=== PATIENT | male | born 1955 | race Caucasian/White ===

== ENCOUNTER 2016-02-25 09:49 | Outpatient (CLI) | payer OTHER | END 2016-02-25 23:00 | LOC: MRI SRH 09:49 | DX: M25.511 Pain in right shoulder (principal); M25.512 Pain in left shoulder; Z53.8 Procedure and treatment not carried out for other reasons ==

== ENCOUNTER 2016-03-01 11:45 | Outpatient (CLI) | payer OTHER ==
--- NOTE | 2016-03-01 17:04 | DIAGNOSTIC IMAGING REPORT ---
PROCEDURE: XR SHOULDER INJECTION (PRE MR) INDICATION: Shoulder pain. Prior surgery (resection distal clavicle, rotator cuff surgery - - reported by patient). TECHNIQUE: The patient was advised of the usual risks and complications including infection, bleeding and allergy. Supine RPO position. Following sterile preparation and 1% lidocaine anesthetic, fluoroscopic guidance 2.2 minutes, 296.11 mGy) was utilized to place a 22-gauge spinal needle into the ventral left glenohumeral joint. A 10.1 mL solution (2.5 mL Isovue 200, 2.5 mL 1% lidocaine, 2.5 mL 0.5% Marcaine, 2.5 mL normal saline, 0.1 mL gadolinium) was infused. Subsequently, 2 mL 40 mg/mL Kenalog was infused and the needle was withdrawn. COMPARISON: None. FINDINGS: Five AP views in neutral, internal and external rotation. Confirmation of intraarticular injection. Arthrogram is normal. Status post and resection of the left distal clavicle. The patient tolerated the procedure reasonably well and was transferred to MRI in satisfactory condition with instructions to resume routine activity the following day, and to call for any untoward symptoms (increasing pain/swelling). IMPRESSION: 1. Successful fluoroscopically guided diagnostic/therapeutic injection of the left glenohumeral joint (pre MRI). 2. Negative arthrogram of the left shoulder. 3. MR arthrography is pending.
--- NOTE | 2016-03-01 17:32 | DIAGNOSTIC IMAGING REPORT ---
PROCEDURE: MR UPPER EXT JOINT W/CONT-LT INDICATION: Left shoulder pain. Prior surgery (reportedly rotator cuff surgery and resection of the distal clavicle). TECHNIQUE: Intraarticular contrast/gadolinium injected earlier in the day. PD, FAT-SAT PD, and FAT-SAT T1 sagittal oblique images. PD, FAT-SAT PD, and FAT-SAT T1 coronal oblique images. T1, FAT-SAT T1, and gradient axial images. COMPARISON: Comparison is made to conventional arthrogram of the left shoulder earlier in the day (03/01/2016). FINDINGS: Status post resection of the distal clavicle and acromioclavicular joint. No evidence of impingement. There are mild generalized atrophic changes of the distal supraspinatus muscle and tendon, although there is no evidence of rotator cuff tear. There is mild coracoid impingement (9 mm). Supraspinatus tendon is normal. Biceps tendon is intact. There is a relatively large of the superior cartilaginous labrum which extends anteriorly and posteriorly. This is associated mild cranial displacement of the humeral head in relation to the glenoid. Metal, inferior, and superior glenohumeral ligaments are normal. IMPRESSION: 1. Status post resection of the right distal clavicle and acromioclavicular joint. No evidence of significant impingement. 2. Mild coracoid impingement. 3. Moderate atrophic changes of the distal supraspinatus muscle and tendon. No evidence of rotator cuff tear. 4. Relatively large tear of the superior labrum which extends anteriorly and posteriorly (SLAP lesion), and is associated with mild cranial displacement of the humeral head (in relation to the glenoid).
== END 2016-03-01 23:00 ==
LOC: XR SRH 11:45
PROC: BP191ZZ Fluoroscopy of Left Shoulder using Low Osmolar Contrast (ICD-10-PCS; principal; 2016-03-01)
DX: M25.512 Pain in left shoulder (principal)

== ENCOUNTER 2016-03-02 12:26 | Outpatient (CLI) | payer OTHER ==
--- NOTE | 2016-03-02 19:21 | DIAGNOSTIC IMAGING REPORT ---
PROCEDURE: XR SHOULDER INJECTION (PRE MR) INDICATION: Right shoulder pain. History of multiple prior surgeries. TECHNIQUE: The patient was advised of the usual risks and complications including infection, bleeding and allergy. Supine RPO position. Following sterile preparation and 1% lidocaine anesthetic, fluoroscopic guidance (2.6 minutes, 1125.03 mGy) was utilized to place a 22-gauge spinal needle into the ventral right glenohumeral joint. A 10.1 mL solution (2.5 mL Isovue 200, 2.5 mL 1% lidocaine, 2.5 mL 0.5% Marcaine, 2.5 mL normal saline, 0.1 mL gadolinium) was infused. Subsequently, 2 mL 40 mg/mL Kenalog was infused and the needle was withdrawn. COMPARISON: Comparison made radiographs of the right shoulder on 12/15/2015. FINDINGS: Five AP views in neutral, internal and external rotation. Confirmation of intraarticular injection. Status post resection of the right distal clavicle. Arthrogram is normal. The patient tolerated the procedure reasonably well and was transferred to MRI in satisfactory condition with instructions to resume routine activity the following day, and to call for any untoward symptoms (increasing pain/swelling). IMPRESSION: 1. Successful fluoroscopically guided diagnostic/therapeutic injection of the right glenohumeral joint (pre MRI). 2. Negative arthrogram of the right shoulder. 3. MR arthrography is pending.
--- NOTE | 2016-03-02 19:47 | DIAGNOSTIC IMAGING REPORT ---
PROCEDURE: MR UPPER EXT JOINT W/CONT-RT INDICATION: Right shoulder pain. History of multiple prior surgeries. TECHNIQUE: Intraarticular contrast/gadolinium injected earlier in the day. PD, FAT-SAT PD, and FAT-SAT T1 sagittal oblique images. PD, FAT-SAT PD, and FAT-SAT T1 coronal oblique images. T1, FAT-SAT T1, and gradient axial images. COMPARISON: Comparison is made to conventional arthrogram earlier in the day (03/02/2016). FINDINGS: Status post resection of the distal clavicle with partial resection of the right acromioclavicular joint and acromioplasty. No evidence of residual impingement of. There is mild tendinosis of the anterior lateral rotator cuff, but no evidence of rotator cuff tear. There is mild coracoid impingement (10 mm) Status post repair of anterior superior cartilaginous labral tear with postoperative changes and metal artifact. Mild degenerative changes and chondromalacia of the right glenohumeral joint. Biceps tendon is intact. Superior, middle, and inferior glenohumeral ligaments are normal IMPRESSION: 1. Postoperative changes (resection of the distal clavicle, partial resection right acromioclavicular joint, and acromioplasty). No evidence of impingement. 2. Mild tendinosis of the anterior lateral rotator cuff, but no evidence of rotator cuff tear. 3. Mild coracoid impingement (10 mm). 4. Status post anterior superior cartilaginous labral tear with postoperative changes. No evidence of recurrent tear. 5. Mild degenerative changes and chondromalacia of the right glenohumeral joint.
== END 2016-03-02 23:00 ==
LOC: XR SRH 12:26
PROC: BP181ZZ Fluoroscopy of Right Shoulder using Low Osmolar Contrast (ICD-10-PCS; principal; 2016-03-02)
DX: M19.011 Primary osteoarthritis, right shoulder (principal); M94.211 Chondromalacia, right shoulder

== ENCOUNTER 2016-04-11 12:07 | Observation (INO) | payer OTHER ==
[~2016-04-11] VITALS: Ht 180.3 cm; Wt 86.2 kg
--- NOTE | 2016-04-11 12:36 | DIAGNOSTIC IMAGING REPORT ---
PROCEDURE: XR CHEST 1 VIEW INDICATION: CHEST PAIN TECHNIQUE: Portable AP view 12:20 p.m. COMPARISON: None. FINDINGS: Lungs are clear. Heart and mediastinum are normal. Thorax is normal. IMPRESSION: 1. Negative chest.
--- NOTE | 2016-04-11 14:54 | DIAGNOSTIC IMAGING REPORT ---
PROCEDURE: CTA THORAX WITH CONTRAST INDICATION: CHEST PAIN TECHNIQUE: 80 ml of Isovue 370 was injected intravenously and axial images were obtained of the chest with 3D sagittal and coronal MIP reconstructions. COMPARISON: Chest x-ray Performed the same day. FINDINGS: Normal opacification of the pulmonary arterial tree without filling defect. The central pulmonary arteries are normal caliber. Thoracic aorta is normal caliber with mild mixed calcified and noncalcified atherosclerosis. The great vessels demonstrate a normal branching pattern. Heart size is normal. No pericardial effusion. No adenopathy or mediastinal masses. The esophagus is normal in caliber without hiatal hernia. The thyroid gland is normal. Minimal atelectatic changes. The lungs are otherwise clear. The airway is patent and branches normally. No pleural effusions or pneumothorax. Osseous structures are intact. 2.6 cm subcutaneous/subdermal ovoid nodule just to the left of midline at the T7 level. The images obtained of the upper abdomen are normal. IMPRESSION: 1. No pulmonary embolus. 2. Mild atherosclerosis of the aorta. 3. Findings discussed with Dr. Monroe in the emergency room.
--- NOTE | 2016-04-11 15:42 | ED ORDER SUMMARY ---
..... Patient: ARTURO MARTINS OrderSheet [facility] VisitID: [id number] [address] [place] [address] 60y, M Registration Date/Time: 04/11/2016 ORDER SHEET Weight: 95.2 kg (stated) Allergies: No Known Drug Allergy GENERAL ORDERS: Chest 1V Urgent (12:12 04/11/2016 Frandy FLORES) (Ack 12:21 Branden) (12:27 KKnebel R.N.) Billing And Accounting Staff Assistant (Continuous) (12:12 04/11/2016 Frandy FLORES) (12:21 Branden) CBC w Diff Urgent (12:04/11/2016 Frandy FLORES) (Ack 12:21 Branden) (12:27 KKnebel R.N.) CMP Urgent (12:04/11/2016 Frandy FLORES) (Ack 12:21 Branden) (12:27 KKnebel R.N.) UA-Culture if indicated Urgent (12:12 04/11/2016 Farndy FLORES) (Ack 12:21 Branden) PT with INR Urgent (12:12 04/11/2016 Frandy FLORES) (Ack 12:21 Branden) (12:27 KKnebel R.N.) PTT Urgent (12:12 04/11/2016 Frandy FLORES) (Ack 12:21 Branden) (12:27 KKnebel R.N.) D-Dimer Urgent (12:12 04/11/2016 Frandy FLORES) (Ack 12:21 Branden) (12:27 KKnebel R.N.) Amylase Urgent (12:12 04/11/2016 Frandy FLORES) (Ack 12:21 Branden) (12:27 KKnebel R.N.) Lipase Urgent (12:12 04/11/2016 Frandy FLORES) (Ack 12:21 Branden) (12:27 KKnebel R.N.) CPK Urgent (12:12 04/11/2016 Frandy FLORES) (Ack 12:21 Branden) (12:27 KKnebel R.N.) Troponin-I Urgent (12:12 04/11/2016 Frandy FLORES) (Ack 12:21 KHoerner) (12:27 Immanuel R.N.) BNP Urgent (12:12 04/11/2016 Frandy FLORES) (Ack 12:21 KHoerner) (12:27 Immanuel R.N.) Oxygen (2 L/min) (NC) (12:12 04/11/2016 Frandy FLORES) (12:21 KHoerner) Pulse oximeter (12:12 04/11/2016 Frandy FLORES) (12:21 KHoerner) EKG - ER Stat (12:12 04/11/2016 Frandy FLORES) (12:21 KHoerner) CTA Thorax w Cont (No) (See report) Urgent (13:52 04/11/2016 Frandy FLORES) (Ack 13:53 KHoerner) (13:59 Immanuel R.N.) MEDICATION ORDERS: NitroGLYCERIN Paste Topical 0.5 in. (NOW, to CW) (12:39 04/11/2016 Frandy FLORES) (12:50 Immanuel R.N.) IV FLUIDS: IV Saline Lock (12:12 04/11/2016 Frandy FLORES) (12:27 Immanuel R.N.) Morphine IV 4 mg (HIGH ALERT MEDICATION, NOW) (12:39 04/11/2016 Frandy FLORES) (12:51 SWATHInelatasha R.N.) IV NS : initial bolus 500 mL (1000 mL/hr), then 125 mL/hr for 4h (NOW); Urgent (13:52 04/11/2016 Frandy FLORES) (15:37 Immanuel R.N.) Morphine IV 4 mg (HIGH ALERT MEDICATION, NOW) (15:42 04/11/2016 Frandy FLORES) (16:14 SWATHInebel R.N.) ORDER SHEET NOTES: [Electronically signed by Silvana Up R.N. (16:48 04/11/2016)] [Electronically signed by Alessandro Monroe MD (20:04 04/11/2016)] [Electronically locked/signed by Silvana Up R.N. (16:48 04/11/2016)]
--- NOTE | 2016-04-11 15:42 | ED CLINICAL REPORT ---
Clinical Report - Physicians/Mid Levels [facility] [address] [place] [place] [address] 04/11/2016 12:08 Patient: ARTURO MARTINS Time Seen: 12:11. Arrived- By ambulance. Historian- patient and EMS personnel. HISTORY OF PRESENT ILLNESS Chief Complaint: CHEST PAIN. This started last night and is still present and now worse. It was gradual in onset and has been waxing/waning. Onset during light activity. At its maximum, severity described as 9 / 10. When seen in the E.D., severity described as 7 / 10. Modifying factors- worsened by movement and deep breaths. Relieved by rest and nitroglycerin (three, given by paramedics). Relief was partial and transient. It is described as pressure and aching and it is described as located in the left chest area and radiating to the upper back. No nausea, vomiting or diaphoresis. He has had difficulty breathing (felt like "I couldn't take a full breath"). Similar symptoms previously: ( he was never evaluated for the event). REVIEW OF SYSTEMS The patient has had chills and palpitations. No fever, calf pain or pedal edema. He has had mild, crampy, intermittent abdominal pain (for 2 days). The pain is described as located in the central area of the abdomen. He has had hesitancy (chronically). It has been similar to previous symptoms. He says that he a stress test about [address] Lorenzo. All systems otherwise negative, except as recorded above. PAST HISTORY PCP - Chantale. Problems: Hypotension. Bursitis. Sprain. Prior Injury, Same Area. Hyperlipidemia. Hypertension. Additional Surgeries: Knee Surgery. Shoulder Surgery. Medications: Hydrochlorothiazide Oral. Aspirin Oral (Tablet Chewable 81 mg) 1 tablet, daily. PriLOSEC Oral (Capsule Delayed Release 40 mg) 1 capsule, daily. Lisinopril Oral (Tablet 10 mg) 1 tablet, daily. AmLODIPine Besylate Oral. Allergies: No Known Drug Allergy. SOCIAL HISTORY Current every day light tobacco smoker (cigarette)- less than 1/2 a pack per day. No alcohol use or drug use. Resides in a house. He lives alone. FAMILY HISTORY No history of heart disease or aortic aneurysm or dissection. Stroke in first-degree relative (father). ADDITIONAL NOTES The nursing notes have been reviewed. PHYSICAL EXAM Vital Signs: 04/11/2016 12:12 BP: 128/65. HR: 93. RR: 26. O2 saturation: 98%. Temp: 98.2 F. Pain level now: 5/10. Appearance: Alert. Eyes: Pupils equal, round and reactive to light. Eyes normal inspection. ENT: Ears normal. Pharynx normal. Neck: Normal inspection. Neck supple. CVS: Normal heart rate and rhythm. Heart sounds normal. Respiratory: No respiratory distress. Breath sounds normal. Abdomen: Soft and nontender. Bowel sounds normal. No organomegaly. No mass. Back: Normal external inspection. No CVA tenderness. Skin: Skin warm and dry. Normal skin color. Normal skin turgor. Extremities: Extremities exhibit normal ROM. No calf tenderness. No lower extremity edema. LABS, X-RAYS, AND EKG EKG: Rate: 92. Non-specific ST segment / T wave abnormalities. Prolonged QT (394 ms). Changes present when compared to prior EKG. (from a prior 12-lead study and rhythm strips from the clinic and ambulance today as well as from a prior study performed here on 17 December 2008.). The X-rays were interpreted by the radiologist and contemporaneously by me. Chest CT: (IMPRESSION: 1. No pulmonary embolus. 2. Mild atherosclerosis of the aorta.). The study was interpreted contemporaneously by me and discussed with the radiologist. Laboratory Tests: CBC w Diff: (JAMILA: 04/11/2016 12:05) ( MsgRcvd 04/11/2016 12:27) Final results Test Result Flag Units (Reference) WHITE BLOOD COUNT 11.1 K/uL (4.5-11.5) RED BLOOD COUNT 5.49 M/uL (4.50-5.90) HEMOGLOBIN 17.3 gm/dL (13.5-17.5) HEMATOCRIT 50.7 % (41.0-53.0) MEAN CELL VOLUME 92 fL (80-100) MEAN CORPUSCULAR HGB 32 pg (26-34) MEAN CORPUSCULAR HGB CONC 34 g/dL (31-37) RED CELL DISTRIBUTION WIDTH 14.0 % (11.6-14.8) PLATELET COUNT 234 K/uL (150-400) NEUTROPHIL % 66.7 % (50-75) LYMPH % 23.7 L % (25-40) MONO % 8.1 % (3-14) EOSINOPHIL % 0.1 % (0-4) BASOPHIL % 1.4 % (0-2) PT with INR: (JAMILA: 04/11/2016 12:30) ( [facility] [place]/11[place] 12:52) Final results Test Result Flag Units (Reference) INR 0.9 (0.8-1.2) Low Intensity Therapy: INR 1.5-2.0 PT range 18.5-23.1Mod.Intensity Therapy: INR 2.0-3.0 PT range 23.1-31.5High Intensity Therapy: INR 2.5-3.5 PT range 27.4-35.5High Intensity Therapy 2: INR 3.0-4.0 PT range 31.5-39.3 APTT 26 SECONDS (24-34) D-DIMER QUANTITATIVE 0.53 H ug/mLFEU (0.27-0.52) The primary value of this quantitative assay relates toits negative predictive value (i.e. exclusion) of pulmonaryembolism/deep vein thrombosis/DIC.Elevated levels of d-dimer may also occur with:, age, cancer, inflammation, liver disease,post-op, infection, hematoma, coronary disease, peripheralarteriopathy, bleeding disorders and thrombolytic treatment.Results should be correlated with other clinical andradiological data.Testing Methodology: Latex Immunoassay BNP: (JAMILA: 04/11/2016 12:05) ( [facility] [place] 04/11/2016 12:52) Final results Test Result Flag Units (Reference) B-TYPE NATRIURETIC PEPTIDE 9.9 pg/ml (5-100) CMP: (JAMILA: 04/11/2016 12:30) ( [facility] [place] 04/11/2016 13:21) Final results Test Result Flag Units (Reference) GLUCOSE 117 H mg/dL (70-110) BUN 44 H mg/dL (7-18) CREATININE 1.4 H mg/dL (0.6-1.3) Estimated GFR 54.76 mL/min Estimated GFR- >60 mL/min Note: Persistent reduction over 3 months in eGFR<60 mL/min/1.73 m2 defines CKD. Patients with eGFR values>=60 mL/min/1.73 m2 may also have CKD if evidence ofpersistent proteinuria. Additional information may be foundat www.kidney.org. SODIUM 136 mmol/L (136-145) POTASSIUM 4.1 mmol/L (3.5-5.1) CHLORIDE 100 mmol/L (98-107) CARBON DIOXIDE 26 mmol/L (21-32) CALCIUM 9.3 mg/dL (8.5-10.1) TOTAL PROTEIN 7.4 g/dL (6.4-8.2) ALBUMIN 3.8 g/dL (3.3-5.0) BILIRUBIN, TOTAL 0.5 mg/dL (0.0-1.0) ALKALINE PHOSPHATASE 67 U/L (46-116) AST (SGOT) 21 U/L (15-37) ALT (SGPT) 38 U/L (12-78) LIPASE 228 U/L (73-393) AMYLASE 58 U/L (25-115) CPK 124 U/L (24-260) TROPONIN I <0.05 ng/mL (0.00-1.5) TROPONIN REFERENCE RANGE:<0.1 NEGATIVE0.1-1.5 INDETERMINANT>1.5 POSITIVE . PROGRESS AND PROCEDURES Discussed case with hospitalist, Alex). Reviewed test results and need for additional work-up. Agreed upon treatment plan, need for patient follow-up and decision to place in observation. Health care provider will see patient in ED. Consult obtained from cardiology. Dr. France. Case discussed. Phone consult only. Will see patient in the hospital tomorrow. Patient/family counseled. Old medical records ordered. Disposition: Admitted. Observation. CLINICAL IMPRESSION Chest pain. (Electronically signed by Alessandro Monroe MD 04/11/2016 20:04)
--- NOTE | 2016-04-11 15:42 | ED NURSING NOTES ---
Clinical Report - Nurses [facility] [address] [place] [address] 04/11/2016 12:08 [id number] Triage time 12:Apr 11 2016. Acuity: LEVEL 2. Chief Complaint: CHEST PAIN. Alert. No acute distress. --12:18 Silvana Up R.N. 12:12 04/11/16. BP: 128/65. HR: 93. RR: 26. O2 saturation: 98%. Temp: 98.2 F. Pain level now: 06/15. --12:18 Silvana Up R.N. Weight: 95.2 kg stated. Height/Length: 71 inches Per Patient. BMI: 29.3. --13:18 Silvana Up R.N. Medications AmLODIPine Besylate Oral. --12:14 Silvana Up R.N. Lisinopril Oral (Tablet 10 mg) 1 tablet, daily. --12:14 Silvana Up R.N. PriLOSEC Oral (Capsule Delayed Release 40 mg) 1 capsule, daily. --12:14 Silvana Up R.N. Aspirin Oral (Tablet Chewable 81 mg) 1 tablet, daily. --12:15 Silvana Up R.N. Hydrochlorothiazide Oral. --12:15 Silvana Up R.N. Allergies No Known Drug Allergy. --12:16 Silvana Up R.N. History Arrived by EMS. Historian: patient. This started yesterday. He has had difficulty breathing. He has had a nonproductive cough (for 1 weeks). No nausea or vomiting. PAST MEDICAL HX: Immunizations: has received tetanus within 10 years. Has not received pneumonia vaccine or seasonal influenza immunization. History was obtained from patient. SOCIAL HX: Current every day light tobacco smoker (cigarette)- less than 1/2 a pack per day. No alcohol use or drug use. No infectious disease exposure. SELF HARM ASSESSMENT: A self harm assessment was performed. The patient answered "no" to the question "Do you have thoughts of harming or killing yourself?". FALL RISK ASSESSMENT: Fall risk assessment completed. No fall risk identified. NUTRITIONAL RISK ASSESSMENT: The nutritional risk assessment revealed no deficiencies. FUNCTIONAL ASSESSMENT: Functional assessment: no impairments noted. LEARNING NEEDS ASSESSMENT: The learning needs assessment revealed no barriers. ABUSE ASSESSMENT: Abuse assessment: The patient was asked "Do you feel safe in your home?". SKIN INTEGRITY ASSESSMENT: Skin integrity risk assessment completed. No skin integrity risk identified. --12:18 Silvana Up R.N. PROBLEMS: Hypotension. Bursitis. Tetanus Status. Immunizations. Sprain. Prior Injury, Same Area. Hyperlipidemia. Hypertension. --12:15 Silvana Up R.N. ADDITIONAL SURGERIES: Knee Surgery. Shoulder Surgery. --12:15 Silvana Up R.N. Interventions ID band on patient. To room. --12:18 Silvana Up R.N. PHYSICAL ASSESSMENT GENERAL / NEURO / PSYCH: Alert. Oriented X 4. Appears in no acute distress. RESPIRATORY: Respirations not labored. Breath sounds within normal limits. CVS: Normal sinus rhythm noted. GI / : Abdomen nontender. EXTREMITIES: No lower extremity edema. SKIN: Skin is warm and dry. --12:19 Silvana Up R.N. NURSING PROGRESS NOTES Patient gowned. Head of bed elevated. Two patient identifiers checked. Call light placed in reach. Side rails up x 1. Bed placed in lowest position. Brakes of bed on. Patient ready for evaluation- chart flagged. --12:19 Silvana Up R.N. 12:08. Patient ID band checked for patient name and birthdate: patient confirmed. Blood samples drawn from the left antecubital space peripheral IV site by nurse ; labeled in presence of the patient and sent to lab: mookie set. Line flushed with 10 mL normal saline post blood draw. --12:20 Silvana Up R.N. EKG time: (1214). EKG was performed by a tech and shown to the ED physician. --12:21 Silvana Up R.N. Portable chest x-ray performed (1221). --12:21 Silvana Up R.N. 12:08 04/11/2016 Site #1 started prior to arrival by EMS via IV in the left antecubital space with an 20g angiocath. Blood drawn: rainbow set. Labeled in the presence of the patient and sent to the lab. Saline lock flushed with 10 mL saline. --12:27 Silvana Up R.N. 12:28 04/11/16. BP: 123/77. HR: 86. RR: 18. O2 saturation: 100%. Pain level now: 08/15. --12:38 Silvana Up R.N. 12:50 04/11/2016 NITROGLYCERIN PASTE Topical Paste 0.5 inch. --12:50 Silvana Up R.N. 12:51 04/11/2016 Morphine IVP 4 mg given over 2 minute(s) via site #1. Allergies verified, confirmed 5 rights and sedative warning given to the patient. IV patency established. IV site checked: no pain, redness, or swelling. IV flushed thoroughly pre- and post-medication administration. --12:51 Silvana Up R.N. 13:02 04/11/16. BP: 135/76. HR: 76. RR: 22. O2 saturation: 97%. Pain level now: 04/15. --13:02 Silvana Up R.N. 13:03 04/11/2016 Morphine IVP Response: pain is improving. Symptoms have improved the patient feels the same. --13:03 Silvana Up R.N. Patient transported to [place] by stretcher with tech. (13:58 Apr 11 2016). --13:59 Silvana Up R.N. 14:52 04/11/16. HR: 80. RR: 14. O2 saturation: 97%. Pain level now: 06/15. --14:53 Silvana Up R.N. 15:07 04/11/2016 Started bag #1 1000 mL IV Fluids IV NS (Saline); bolus of 500 mL over 30 minute(s) via site #1 --15:37 Silvana Up R.N. 15:38 04/11/2016 IV Fluids IV NS via IV site #1 Rate Changed: bag #1 decreased to 125 mL/hr via IV pump. IV patency established. IV site checked: no pain, redness, or swelling. IV flushed thoroughly. --15:38 Silvana Up R.N. 15:38 04/11/16. BP: 137/81. HR: 82. RR: 14. O2 saturation: 95%. Pain level now: 07/16. --15:39 Silvana Up R.N. 16:14 04/11/2016 Morphine IVP 4 mg given over 2 minute(s) via site #1. --16:14 Silvana Up R.N. DISPOSITION / DISCHARGE Condition at departure: unchanged. Admitted to the Critical Care Unit. Report was given to a nurse via a phone call. Report included patient's care, treatment, medications, reviewed medication reconcilliation, and condition (including any recent changes or anticipated changes). All questions were answered. Report was acknowledged. FALL RISK ASSESSMENT: Fall risk assessment completed. No fall risk identified. --16:35 Silvana Up R.N. Departure time: 16:40 Apr 11 2016. Patient's personal items include: shirt, pants, undergarments, socks, shoes and glasses, 15.00 keys; items were placed in belongings bag, given to the patient and transported with the patient. --16:40 Silvana Up R.N. Locked/Released at 04/11/2016 16:48 by Silvana Up R.N.
--- NOTE | 2016-04-11 15:42 | ED ORDER SUMMARY ---
..... Patient: ARTURO MARTINS OrderSheet [facility] VisitID: [id number] [address] [place] [address] 60y, M Registration Date/Time: 04/11/2016 ORDER SHEET Weight: 95.2 kg (stated) Allergies: No Known Drug Allergy GENERAL ORDERS: Chest 1V Urgent (12:12 04/11/2016 Frandy FLORES) (Ack 12:21 Branden) (12:27 KKnebel R.N.) Bottom Turner (Continuous) (12:12 04/11/2016 Frandy FLORES) (12:21 Branden) CBC w Diff Urgent (12:04/11/2016 Frandy FLORES) (Ack 12:21 Branden) (12:27 KKnebel R.N.) CMP Urgent (12:04/11/2016 Frandy FLORES) (Ack 12:21 Branden) (12:27 KKnebel R.N.) UA-Culture if indicated Urgent (12:12 04/11/2016 Frandy FLORES) (Ack 12:21 Branden) PT with INR Urgent (12:12 04/11/2016 Frandy FLORES) (Ack 12:21 Branden) (12:27 KKnebel R.N.) PTT Urgent (12:12 04/11/2016 Frandy FLORES) (Ack 12:21 Branden) (12:27 KKnebel R.N.) D-Dimer Urgent (12:12 04/11/2016 Frandy FLORES) (Ack 12:21 Branden) (12:27 KKnebel R.N.) Amylase Urgent (12:12 04/11/2016 Frandy FLORES) (Ack 12:21 Branden) (12:27 KKnebel R.N.) Lipase Urgent (12:12 04/11/2016 Frandy FLORES) (Ack 12:21 Branden) (12:27 KKnebel R.N.) CPK Urgent (12:12 04/11/2016 Frandy FLORES) (Ack 12:21 Branden) (12:27 KKnebel R.N.) Troponin-I Urgent (12:12 04/11/2016 Frandy FLORES) (Ack 12:21 KHoerner) (12:27 Immanuel R.N.) BNP Urgent (12:12 04/11/2016 Frandy FLORES) (Ack 12:21 KHoerner) (12:27 Immanuel R.N.) Oxygen (2 L/min) (NC) (12:12 04/11/2016 Frandy FLORES) (12:21 KHoerner) Pulse oximeter (12:12 04/11/2016 Frandy FLORES) (12:21 KHoerner) EKG - ER Stat (12:12 04/11/2016 Frandy FLORES) (12:21 KHoerner) CTA Thorax w Cont (No) (See report) Urgent (13:52 04/11/2016 Frandy FLORES) (Ack 13:53 KHoerner) (13:59 Immanuel R.N.) MEDICATION ORDERS: NitroGLYCERIN Paste Topical 0.5 in. (NOW, to CW) (12:39 04/11/2016 Frandy FLORES) (12:50 Immanuel R.N.) IV FLUIDS: IV Saline Lock (12:12 04/11/2016 Frandy FLORES) (12:27 Immanuel R.N.) Morphine IV 4 mg (HIGH ALERT MEDICATION, NOW) (12:39 04/11/2016 Frandy FLORES) (12:51 SWATHInelatasha R.N.) IV NS : initial bolus 500 mL (1000 mL/hr), then 125 mL/hr for 4h (NOW); Urgent (13:52 04/11/2016 Frandy FLORES) (15:37 Immanuel R.N.) Morphine IV 4 mg (HIGH ALERT MEDICATION, NOW) (15:42 04/11/2016 Frandy FLORES) (16:14 SWATHInebel R.N.) ORDER SHEET NOTES: [Electronically signed by Silvana Up R.N. (16:48 04/11/2016)] [Electronically signed by Alessandro Monroe MD (20:04 04/11/2016)] [Electronically locked/signed by Silvana Up R.N. (16:48 04/11/2016)]
[2016-04-11 17:14] VITALS: BP 131/85
--- NOTE | 2016-04-11 18:28 | History & Physical Report ---
Admission Admit Date 04/11/16 Note Date: April 11, 2016 Admission Date: April 11, 2016 Hospital Day: 1 PCP: Reza Kenyon MD Status: Inpatient Advanced Directive: Full Code Room: 204 Information Source Information Source: Self Reliability: Good History Chief Complaint CHEST PAIN History of Present Illness Patient is a 60 year old male with a pmh of hypertension, arthritis, and muslce spasms that is presenting with a one day history of chest pain. Patient had been in his usual state of health when he developed sudden onset chest pressure. Patient descrbies the chest pressure as 8/10 in intensity with no radiation. Patient claims that the chest pain appeared out of nowhere with no inciting or exacerbating factors. Patient claims that the nitro he recieved and the morphine he took helped with the pain. Patient does not have any other complaints. Patient is otherwise stable. Patient History 1. Chest pain 2. Hypertension 3. Arthritis 4. 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 He lives with his girlfriend. Patient smokes 1/2 pack a day for the past 51 years. He does not drink alcohol or use illicit substances except for occasional marijuana use. Family History Family history was reviewed; no changes noted. Advance Directive Durable POA-Healthcare Medications and Allergies Medications Home Medications amlodopine 10 mg dalily Omeprazole 40 mg daily cyclobenzaprine 10 mg tid lisinopril 10 mg daily hydrocodone 5/325 daily HCTZ 25 mg daily Current Medications Sig/Dyana Start time Last Medication Dose Route Stop Time Status Admin Pantoprazole Sodium 40 MG DAILY@0600 03/07 0600 AC Sesquihydrate PO Enoxaparin Sodium 40 MG QAM 04/11 1800 AC 04/11 SC 1822 Acetaminophen 650 MG Q6H PRN 04/11 1700 AC PO Morphine Sulfate 1 MG Q2H PRN 04/11 1700 AC 04/11 IV 1822 Allergies Coded Allergies: No Known Drug Allergy (12/17/08) Review of Systems Constitutional Denies: Fever, Chills, Sweats, Weakness, Malaise, Other. Eyes Denies: Pain, Vision Change, Conjunctival Inflammation, Eyelid Inflammation, Redness, Other. ENT Denies: Ear Pain, Ear Discharge, Nose Pain, Nasal Discharge, Nasal Congestion, Mouth Pain, Mouth Swelling, Throat Pain, Throat Swelling, Other. Respiratory Denies: Cough, Dry, SOB w/exertion, Wheezing, Hemoptysis, Pleuritic Pain, Sputum , Other. Cardiovascular Chest Pain, Light-headedness. Denies: Palpitations, Orthopnea, PND, Edema, Other. Gastrointestinal Denies: Nausea, Vomiting, Abdominal Pain, Diarrhea, Constipation, Melena, Hematochezia, Other. Genitourinary Denies: Dysuria, Frequency, Incontinence, Hematuria, Retention, Other. Musculoskeletal Denies: Neck Pain, Shoulder Pain, Arm Pain, Back Pain, Hand Pain, Leg Pain, Foot Pain, Other. Skin Denies: Rash, Lesions, Jaundice, Bruising, Other. Neurological Denies: Weakness, Numbness, Incoordination, Change in speech, Confusion, Seizures, Other. Physical Exam Vital Signs / I&Os Vital Signs Date Time Temp Pulse Resp B/P Pulse O2 O2 Flow FiO2 Ox Delivery Rate 04/11 1714 98.4 81 17 131/85 97 Room Air 04/11 1653 0.0 General Appearance Alert, Oriented X3, No acute distress HEENT Normal exam, Atraumatic, PERRLA, Moist mucous membranes Lungs Clear to auscultation, Normal air movement Cardiovascular Regular rate and rhythm, Normal S1 and S2, No murmurs, gallops, rubs Abdomen Soft, No tenderness, No guarding, No rebound, No masses, No hepatosplenomegaly Extremities No cyanosis, No edema, Normal pulses, No tenderness, Strength = upper ext's, Strength = lower ext's Skin No Breakdown, No Significant Lesions Neurological Normal speech, Normal tone, Sensation intact, Cranial nerves intact , Strength 5/5 x4 ext's, No lateralizing signs LAB Results Laboratory Tests 04/11 04/11 1205 1230 Chemistry Plasma Sodium (136 - 145 mmol/L) 136 Plasma Potassium (3.5 - 5.1 mmol/L) 4.1 Plasma Chloride (98 - 107 mmol/L) 100 CO2 (Enzymatic) (21 - 32 mmol/L) 26 BUN (7 - 18 mg/dL) 44 Creatinine (0.6 - 1.3 mg/dL) 1.4 Est GFR ( Amer) (mL/min) >60 Est GFR (Non-Af Amer) (mL/min) 54.76 Glucose (70 - 110 mg/dL) 117 Plasma Calcium (8.5 - 10.1 mg/dL) 9.3 Total Bilirubin (0.0 - 1.0 mg/dL) 0.5 AST (15 - 37 U/L) 21 ALT (12 - 78 U/L) 38 Alkaline Phosphatase (46 - 116 U/L) 67 Creatine Kinase (24 - 260 U/L) 124 Troponin (0.00 - 1.5 ng/mL) <0.05 B-Natriuretic Peptide (5 - 100 pg/ml) 9.9 Total Protein (6.4 - 8.2 g/dL) 7.4 Albumin (3.3 - 5.0 g/dL) 3.8 Amylase (25 - 115 U/L) 58 Lipase (73 - 393 U/L) 228 Coagulation INR (0.8 - 1.2) 0.9 APTT (24 - 34 SECONDS) 26 D-Dimer, Quantitative (0.27 - 0.52 ug/mLFEU) 0.53 Hematology WBC (4.5 - 11.5 K/uL) 11.1 RBC (4.50 - 5.90 M/uL) 5.49 Hgb (13.5 - 17.5 gm/dL) 17.3 Hct (41.0 - 53.0 %) 50.7 MCV (80 - 100 fL) 92 MCH (26 - 34 pg) 32 RDW (11.6 - 14.8 %) 14.0 Neut % (Auto) (50 - 75 %) 66.7 Lymph % (Auto) (25 - 40 %) 23.7 Young % (Auto) (3 - 14 %) 8.1 Eos % (Auto) (0 - 4 %) 0.1 Baso % (Auto) (0 - 2 %) 1.4 Plt Count, EDTA (150 - 400 K/uL) 234 PUBS MCHC (31 - 37 g/dL) 34 Assessment and Plan Problem List 1. Chest pain Plan - pt has a history of one day of chest pain - pt has an EKG which shows NSR @ 68 - Pt has no troponin elevation - will continue to trend troponin level - will schedule for stress test for tomorrow- persantine nuclear 2. Hypertension Plan - c/w home medications - will continue to trend bp as needed 3. Arthritis Plan - Pt has a significant history of shoulder and knee arthritis which required 3 surgeries on the upper and 4 surgeries on the right knee - will continue with hydrocodone as needed 4. GERD (gastroesophageal reflux disease) Plan - established - stable - will continue with pantaprazole
--- NOTE | 2016-04-11 20:05 | ED MED RECONCILIATION SUMMARY ---
Patient: ARTURO MARTINS Medication Reconciliation Report [facility] VisitID: [id number] [address] [place] [address] 60y, M Registration Date/Time: 04/11/2016 Weight: 95.2 kg Height/Length: 71 in. BMI: 29.3 ALLERGIES: No Known Drug Allergy The patient's Home Medications are listed below: THE FOLLOWING MEDICATIONS NEED TO BE RECONCILED: AmLODIPine Besylate Oral Aspirin Oral (81 mg) 1 tablet, daily Hydrochlorothiazide Oral Lisinopril Oral (10 mg) 1 tablet, daily PriLOSEC Oral (40 mg) 1 capsule, daily The source(s) of the original Home Medication information: Not obtained. The following Medications were given to the patient in the Emergency Department: NITROGLYCERIN PASTE [TOPICAL] Topical 0.5 in., administered: 04/11/2016 12:50:00 PM Morphine [IVP] IVP 4 mg, administered: 04/11/2016 12:51:00 PM IV NS IV Fluids bolus 500 mL over 30 minute(s), administered: 04/11/2016 3:07:00 PM Morphine [IVP] IVP 4 mg, administered: 04/11/2016 4:14:00 PM The following Medications were prescribed to the patient: None.
--- NOTE | 2016-04-11 20:05 | ED MAR SUMMARY ---
..... Medication Administration Record [facility] [address] [place] [address] Patient: ARTURO MARTINS Visit ID: [id number] 60y, M Weight: 95.2 kg Height/Length: 71 in BMI: 29.3 ALLERGIES: No Known Drug Allergy Given 12:50 04/11/2016 Silvana Up R.N. Medication Administered: NITROGLYCERIN PASTE [TOPICAL], Dose: 0.5 in. Paste Topical. Medication Ordered: NitroGLYCERIN Paste Topical 0.5 in. (NOW, to CW). Given 12:51 04/11/2016 Silvana Up R.N. Medication Administered: MORPHINE [IVP], Dose: 4 mg IVP over 2 minute(s), Site: #1 left AC. Medication Ordered: Morphine IV 4 mg (HIGH ALERT MEDICATION, NOW). Start 15:07 04/11/2016 Silvana Up R.N. Medication Administered: IV NS (SALINE), Dose: IV Fluids, Bolus: 500 mL over 30 minute(s), Dispensed: 1000 mL bag, Site: #1 left AC. Medication Ordered: IV NS : initial bolus 500 mL (1000 mL/hr), then 125 mL/hr for 4h (NOW); Urgent. Given 16:14 04/11/2016 Silvana Up R.N. Medication Administered: MORPHINE [IVP], Dose: 4 mg IVP over 2 minute(s), Site: #1 left AC. Medication Ordered: Morphine IV 4 mg (HIGH ALERT MEDICATION, NOW).
--- NOTE | 2016-04-11 20:05 | ED MED RECONCILIATION SUMMARY ---
Patient: ARTURO MARTINS Medication Reconciliation Report [facility] VisitID: [id number] [address] [place] [address] 60y, M Registration Date/Time: 04/11/2016 Weight: 95.2 kg Height/Length: 71 in. BMI: 29.3 ALLERGIES: No Known Drug Allergy The patient's Home Medications are listed below: THE FOLLOWING MEDICATIONS NEED TO BE RECONCILED: AmLODIPine Besylate Oral Aspirin Oral (81 mg) 1 tablet, daily Hydrochlorothiazide Oral Lisinopril Oral (10 mg) 1 tablet, daily PriLOSEC Oral (40 mg) 1 capsule, daily The source(s) of the original Home Medication information: Not obtained. The following Medications were given to the patient in the Emergency Department: NITROGLYCERIN PASTE [TOPICAL] Topical 0.5 in., administered: 04/11/2016 12:50:00 PM Morphine [IVP] IVP 4 mg, administered: 04/11/2016 12:51:00 PM IV NS IV Fluids bolus 500 mL over 30 minute(s), administered: 04/11/2016 3:07:00 PM Morphine [IVP] IVP 4 mg, administered: 04/11/2016 4:14:00 PM The following Medications were prescribed to the patient: None.
--- NOTE | 2016-04-11 20:05 | ED MAR SUMMARY ---
..... Medication Administration Record [facility] [address] [place] [address] Patient: ARTURO MARTINS Visit ID: [id number] 60y, M Weight: 95.2 kg Height/Length: 71 in BMI: 29.3 ALLERGIES: No Known Drug Allergy Given 12:50 04/11/2016 Silvana Up R.N. Medication Administered: NITROGLYCERIN PASTE [TOPICAL], Dose: 0.5 in. Paste Topical. Medication Ordered: NitroGLYCERIN Paste Topical 0.5 in. (NOW, to CW). Given 12:51 04/11/2016 Silvana Up R.N. Medication Administered: MORPHINE [IVP], Dose: 4 mg IVP over 2 minute(s), Site: #1 left AC. Medication Ordered: Morphine IV 4 mg (HIGH ALERT MEDICATION, NOW). Start 15:07 04/11/2016 Silvana Up R.N. Medication Administered: IV NS (SALINE), Dose: IV Fluids, Bolus: 500 mL over 30 minute(s), Dispensed: 1000 mL bag, Site: #1 left AC. Medication Ordered: IV NS : initial bolus 500 mL (1000 mL/hr), then 125 mL/hr for 4h (NOW); Urgent. Given 16:14 04/11/2016 Silvana Up R.N. Medication Administered: MORPHINE [IVP], Dose: 4 mg IVP over 2 minute(s), Site: #1 left AC. Medication Ordered: Morphine IV 4 mg (HIGH ALERT MEDICATION, NOW).
--- NOTE | 2016-04-11 20:05 | ED DISCHARGE INSTRUCTIONS ---
Patient: ARTURO MARTINS [facility] General Instructions [facility] VisitID: [id number] [address] [place] [address] 60y, M Registration Date/Time: 04/11/2016 Chest pain. (Electronically signed by Alessandro Monroe MD 04/11/2016 20:04)
--- NOTE | 2016-04-11 20:05 | ED DISCHARGE INSTRUCTIONS ---
Patient: ARTURO MARTINS [facility] [facility] Instructions [facility] VisitID: [id number] [address] [place] [address] 60y, M Registration Date/Time: 04/11/2016 Chest pain. (Electronically signed by Alessandro Monroe MD 04/11/2016 20:04)
[2016-04-11 22:38] VITALS: BP 115/68
[2016-04-12 01:30] VITALS: BP 117/77
[2016-04-12 06:32] VITALS: BP 136/72
[2016-04-12 10:13] VITALS: BP 146/83
[2016-04-12] MEDS ORDERED: AMLODIPINE BESYL5 MG PO (13:31)
[2016-04-12] MEDS ORDERED: ASPIRIN ADULT L81 MG PO (13:31)
[2016-04-12] MEDS ORDERED: LISINOPRIL10 MG PO (13:31)
[2016-04-12] MEDS ORDERED: PRILOSEC20 MG (13:31)
[2016-04-12] MEDS ORDERED: HYDROCHLOROTH12.5 MG PO (13:32)
[2016-04-12] MEDS ORDERED: ALEVE220 MG PO (13:33)
[2016-04-12] MEDS ORDERED: CYCLOBENZAPRINE10 MG PO (13:34)
[2016-04-12] MEDS ORDERED: VICODIN EQUIVAL1 TAB PO (13:35)
--- NOTE | 2016-04-12 14:12 | Progress Note ---
Subjective General Patient seen and exained. Patient is due for stress test today. Pts troponins were negative overnight however the patient is still having occasional bouts of chest pain, no ekg changes/telemtery changes noted. Constitutional Denies: Fever, Chills, Sweats, Weakness, Malaise, Other. Eyes Denies: Pain, Vision Change, Conjunctival Inflammation, Eyelid Inflammation, Redness, Other. ENT Denies: Ear Pain, Ear Discharge, Nose Pain, Nasal Discharge, Nasal Congestion, Mouth Pain, Mouth Swelling, Throat Pain, Throat Swelling, Other. Respiratory Denies: Cough, Dry, SOB w/exertion, Wheezing, Hemoptysis, Pleuritic Pain, Sputum , Other. Cardiovascular Chest Pain. Denies: Palpitations, Orthopnea, PND, Edema, Light-headedness, Other. Gastrointestinal Denies: Nausea, Vomiting, Abdominal Pain, Diarrhea, Constipation, Melena, Hematochezia, Other. Genitourinary Denies: Dysuria, Frequency, Incontinence, Hematuria, Retention, Other. Musculoskeletal Shoulder Pain. Denies: Neck Pain, Arm Pain, Back Pain, Hand Pain, Leg Pain, Foot Pain, Other. Skin Denies: Rash, Lesions, Jaundice, Bruising, Other. Neurological Denies: Weakness, Numbness, Incoordination, Change in speech, Confusion, Seizures, Other. Physical Exam Vital Signs / I&Os Vital Signs Date Time Temp Pulse Resp B/P Pulse O2 O2 Flow FiO2 Ox Delivery Rate 04/13 1135 98.2 79 18 152/90 97 04/13 0832 0.0 04/13 0705 97.7 71 18 145/84 97 Room Air 0.0 04/13 0220 98.4 80 16 145/85 96 Room Air 04/12 1618 98.2 73 20 153/83 94 Room Air 0.0 I&O 04/12 0800 03/07 1600 /08 0000 Intake Total 120 500 Output Total 350 275 700 Balance -350 -155 -200 General Appearance Alert, Oriented X3, No acute distress HEENT Atraumatic, PERRLA, Moist mucous membranes Lungs Clear to auscultation, Normal air movement Cardiovascular Regular rate and rhythm, Normal S1 and S2, No murmurs, gallops, rubs Abdomen Normal bowel sounds, Soft, No tenderness, No guarding, No rebound, No masses, No hepatosplenomegaly Extremities No edema, Normal pulses, Strength = upper ext's, Strength = lower ext's Skin No Breakdown, No Significant Lesions Neurological Normal speech, Normal tone, Sensation intact, Cranial nerves intact , Strength 5/5 x4 ext's, No lateralizing signs LAB Results Laboratory Tests 04/12 1410 Chemistry Troponin (0.00 - 1.5 ng/mL) <0.05 Assessment and Plan Problem List 1. Chest pain Plan - troponins negative overnight - about 4 instances of chest pain noted during the night with resolution after nitro and morphine - will schedule for nuclear stress test today - will monitor afterwards 2. Hypertension Plan - stable - will cw home medications 3. Arthritis Plan - pts arthritic pains are well controlled - no worsening pain or range of motion - pain control 4. GERD (gastroesophageal reflux disease) Plan - chronic condition - no exacerbations noted - will c/w daily ppi
[2016-04-12 16:18] VITALS: BP 153/83
[2016-04-13 02:20] VITALS: BP 145/85
[2016-04-13 07:05] VITALS: BP 145/84
[2016-04-13 11:35] VITALS: BP 152/90
[2016-04-13] MEDS ORDERED: NITROSTAT0.4 MG SL (12:30)
--- NOTE | 2016-04-13 12:31 | Provider's Discharge Care Plan ---
Problem, Goal, Plan Problem List 1. Chest pain Instructions: - pleae follow up with Dr Dangelo - please make appointment with number provided for you - [phone] 2. Hypertension Instructions: Take meds as directed 3. Arthritis Instructions: Take meds as directed 4. GERD (gastroesophageal reflux disease) Instructions: Stop smoking
--- NOTE | 2016-04-13 12:31 | Provider's Discharge Care Plan ---
Problem, Goal, Plan Problem List 1. Chest pain Instructions: - pleae follow up with Dr Dangelo - please make appointment with number provided for you - [phone] 2. Hypertension Instructions: Take meds as directed 3. Arthritis Instructions: Take meds as directed 4. GERD (gastroesophageal reflux disease) Instructions: Stop smoking
--- NOTE | 2016-04-13 12:32 | Discharge Summary ---
Discharge Summary Report Admit Date 04/11/16 Discharge Date 04/13/16 Admission Diagnosis Chest pain Discharge Diagnosis Chest pain Brief History Patient is a 60 year old male with a pmh of hypertension, arthritis, and muslce spasms that is presenting with a one day history of chest pain. Patient had been in his usual state of health when he developed sudden onset chest pressure. Patient descrbies the chest pressure as 8/10 in intensity with no radiation. Patient claims that the chest pain appeared out of nowhere with no inciting or exacerbating factors. Patient claims that the nitro he recieved and the morphine he took helped with the pain. Patient does not have any other complaints. Patient is otherwise stable. Hospital Course Patient was admitted for chest pain. Patient was scheduled for nuclear stress test for the next day. Patient had his troponins trended overnight which did not show any acute changes. Patient was relatiely pain free during the night however had occasional bouts of chst pain. Patient went for the nuclear stress test which did not reveal any major defect. Patient will be discharged today. He will follow up with Dr Dangelo and call for an appointment. Patient will additionally fill out a prescription for nitro on top of his home medications. Patient is otherwise stable for discharge. General Appearance Alert, Oriented X3, No acute distress HEENT PERRLA, EOMI, Mucous membran moist/pink Lungs Clear to auscultation, Normal air movement Cardiovascular Normal S1, Normal S2 Abdomen Soft, No tenderness, No hepatospenomegaly Skin No Breakdown, No Significant Lesions Neurological Strength at 5/5 X4 ext, Normal tone, Sensation intact, Cranial nerves 3-12 NL Lab/Imaging Laboratory Tests 04/12 1410 Chemistry Troponin (0.00 - 1.5 ng/mL) <0.05 Discharge Instructions/Meds - make appointment with Dr Dangelo - take medications as prescribed - stop smoking
--- NOTE | 2016-04-13 12:44 | Progress Note ---
Subjective General Patient doing well overnight, less evidence of chest pain during the night. Patients stress test results did not reveal any abnormality. Constitutional Denies: Fever, Chills, Sweats, Weakness, Malaise, Other. Eyes Denies: Pain, Vision Change, Conjunctival Inflammation, Eyelid Inflammation, Redness, Other. ENT Denies: Ear Pain, Ear Discharge, Nose Pain, Nasal Discharge, Nasal Congestion, Mouth Pain, Mouth Swelling, Throat Pain, Throat Swelling, Other. Respiratory Denies: Cough, Dry, SOB w/exertion, Wheezing, Hemoptysis, Pleuritic Pain, Sputum , Other. Cardiovascular Chest Pain. Denies: Palpitations, Orthopnea, PND, Edema, Light-headedness, Other. Gastrointestinal Denies: Nausea, Vomiting, Abdominal Pain, Diarrhea, Constipation, Melena, Hematochezia, Other. Genitourinary Denies: Dysuria, Frequency, Incontinence, Hematuria, Retention, Other. Musculoskeletal Denies: Neck Pain, Shoulder Pain, Arm Pain, Back Pain, Hand Pain, Leg Pain, Foot Pain, Other. Skin Denies: Rash, Lesions, Jaundice, Bruising, Other. Neurological Denies: Weakness, Numbness, Incoordination, Change in speech, Confusion, Seizures, Other. Physical Exam Vital Signs / I&Os Vital Signs Date Time Temp Pulse Resp B/P Pulse O2 O2 Flow FiO2 Ox Delivery Rate 04/13 1135 98.2 79 18 152/90 97 04/13 0832 0.0 04/13 0705 97.7 71 18 145/84 97 Room Air 0.0 04/13 0220 98.4 80 16 145/85 96 Room Air 04/12 1618 98.2 73 20 153/83 94 Room Air 0.0 I&O 04/12 0800 04/12 1600 04/13 0000 Intake Total 120 500 Output Total 350 275 700 Balance -350 -155 -200 General Appearance Alert, Oriented X3, No acute distress HEENT Atraumatic, PERRLA, Moist mucous membranes Lungs Normal exam, Clear to auscultation Cardiovascular Regular rate and rhythm, Normal S1 and S2, No murmurs, gallops, rubs Abdomen Soft, No tenderness, No guarding, No rebound, No masses Extremities No cyanosis, No clubbing, No edema, Normal pulses, No tenderness Neurological Normal speech, Normal tone, Sensation intact, Reflexes 2+ and equal , Cranial nerves intact LAB Results Laboratory Tests 04/12 1410 Chemistry Troponin (0.00 - 1.5 ng/mL) <0.05 Assessment and Plan Problem List 1. Chest pain Plan - pt had a negative stress test and negative troponins - will dc tdoay - pt will need to follow up with cardiology as an out patient 2. Hypertension Plan - c/w home medications - avoid smoking 3. Arthritis Plan - take medications as prescribed 4. GERD (gastroesophageal reflux disease)
--- NOTE | 2016-04-22 10:23 | DIAGNOSTIC IMAGING REPORT ---
REFERRING PHYSICIAN/PROVIDER: Hernan France MD ATTENDING PHYSICIAN/PROVIDER: Hernan France MD CONSULTING HOPPER FILLER: Americo Chavez Jr MD PROCEDURE PERFORMED: Nuclear stress test INDICATION: CHEST PRESSURE/PAIN RADIOPHARMACEUTICAL: The patient received 11.0 mCi of technetium 99 sestamibi during rest. During peak pharmacological stress the patient received 33.0 mCi of technetium 99 sestamibi. This is a 1-day stress protocol. CARDIAC STRESS: The patient was stressed according to Lexiscan Cardiolite protocol. Resting heart rate was 65 beats per minute. The heart rate of test and was 78 beats per minute. The patient's baseline blood pressure was 137/79 mmHg. At the end of stress the patient's blood pressure was 154/83 mmHg. This is a normal physiologic response to Lexiscan. EKG interpreted by attending physician which was considered to be nondiagnostic. RAW DATA: There is appropriate radiotracer uptake of the LV myocardium. Motion correction software was applied. There is evidence of increased GI uptake as well. QUANTITATIVE GATED SPECT: LV wall motion was normal during stress and rest. The LV ejection fraction during stress was 53%. The left ventricular end-diastolic volume during rest was 82 mL. MYOCARDIAL PERFUSION STUDY: There is evidence for decreased myocardial uptake of the inferior wall during stress. However during rest the perfusion defect actually worsened. Prone imaging there is no evidence of significant improvement. IMPRESSION: 1. There is evidence for a small fixed perfusion defect involving the basal inferior wall. However there is normal LV wall motion which negates that prior myocardial infarction. This is probably a normal myocardial perfusion study. LV ejection fraction is normal. Stress EKG is nondiagnostic based on the fact that this is a pharmacological stress EKG.
== END 2016-04-13 13:00 | disposition home or self-care (01) ==
LOC: ED SRH 12:07 → TRANS SRH 16:03 → ACUTE2 SRH 16:03
PROVIDERS: ADMIT Emergency Medicine
PROC: 4A02XM4 Measurement of Cardiac Total Activity, External Approach (ICD-10-PCS; principal; 2016-04-12)
PROC: 3E073KZ Introduction of Other Diagnostic Substance into Coronary Artery, Percutaneous Approach (ICD-10-PCS; principal; 2016-04-12)
PROC: 3E0234Z Introduction of Serum, Toxoid and Vaccine into Muscle, Percutaneous Approach (ICD-10-PCS; 2016-04-12)
DX: R07.9 Chest pain, unspecified (principal); Z23 Encounter for immunization; I10 Essential (primary) hypertension; K21.9 Gastro-esophageal reflux disease without esophagitis; M19.019 Primary osteoarthritis, unspecified shoulder; M17.10 Unilateral primary osteoarthritis, unspecified knee
CPT/HCPCS: 29230; 29251; 29257; 29264; 90004; 90074; 90100; 90616; 91286; 91320; 91556; 92235; 92530; 92610; 92720; 94001; 94060; 95059

== ENCOUNTER 2016-07-13 21:43 | Emergency (ER) | payer OTHER ==
[~2016-07-13 21:43] MED LIST: ALEVE220 MG PO; AMLODIPINE BESYL5 MG PO; ASPIRIN ADULT L81 MG PO; CYCLOBENZAPRINE10 MG PO; HYDROCHLOROTH12.5 MG PO; LISINOPRIL10 MG PO; NITROSTAT0.4 MG SL; PRILOSEC20 MG; VICODIN EQUIVAL1 TAB PO
--- NOTE | 2016-07-13 23:54 | DIAGNOSTIC IMAGING REPORT ---
PROCEDURE: CT HEAD WITHOUT CONTRAST INDICATION: NUMBNESS LLE TECHNIQUE: Axial CT images were acquired through the head. Coronal and sagittal reformations were created. COMPARISON: 12/16/2008 FINDINGS: No intracranial hemorrhage or extraaxial fluid collections. Ventricles are normal in size, shape and position. There is no mass, mass effect or midline shift. The cornell-white matter differentiation is normal. There is no edema. Mild intracranial arterial atherosclerosis. The calvarium is intact. The paranasal sinuses and mastoid air cells are normally aerated. The extracranial soft tissues and orbits are normal. IMPRESSION: 1. No CT evidence of acute intracranial process. 2. Findings discussed with Dr. Goldstein at [address] scans at this facility use dose modulation, iterative reconstruction, and/or weight-based dosing when appropriate to reduce radiation dose to as low as reasonably achievable.
--- NOTE | 2016-07-14 02:17 | ED NURSING NOTES ---
Clinical Report - Nurses [place] [place] [address] [place] [address] 07/13/2016 21:42 Patient: ARTURO MARTINS TRIAGE Triage time 21:55. Acuity: LEVEL 2. Chief Complaint: LEFT LOWER EXTREMITY NUMBNESS. --22:04 Bettina Espinal R.N. 21:55 07/13/16. BP: 130/71 taken on the left arm, while lying. HR: 71. RR: 18. O2 saturation: 97% on room air. Temp: 98.1 F (oral). Pain level now: 0/10. --22:04 Bettina Espinal R.N. Weight: 91.1 kg stated. Height/Length: 71 inches Per Patient. BMI: 28. --21:56 Bettina Espinal R.N. Medications AmLODIPine Besylate Oral (Tablet 10 mg) 1 tablet, daily. Aspirin Oral (Tablet Chewable 81 mg) 1 tablet, daily. Hydrochlorothiazide Oral. Lisinopril Oral (Tablet 10 mg) 1/2 tablet, daily. --22:00 Bettina Espinal R.N. Plavix Oral (Tablet 75 mg) 1 tablet, daily. --22:00 Bettina Espinal R.N. Allergies No Known Drug Allergy. --22:00 Bettina Espinal R.N. History Arrived by private vehicle. Historian: patient. Accompanied by family. Primary physician (sandy). This occurred (3 hours ago). ( pt c/o numbness to left lower extremity, HX of bilateral blockage of femoral arteries suppose to have surgery soon, bilateral pedal pulses present weak with doppler, poplateal pulse present weak bilaterally with doppler). PAST MEDICAL HX: Tetanus status: up-to-date. Immunizations: up-to-date. SOCIAL HX: Light tobacco smoker (cigarette)- less than 1/2 a pack per day. No alcohol use or drug use. No infectious disease exposure. ABUSE ASSESSMENT: No report of abuse. SELF HARM ASSESSMENT: A self harm assessment was performed. The patient answered "no" to the question "Have you recently felt down, depressed, or hopeless?", "Have you noticed less interest or pleasure in doing things?", "Do you have thoughts of harming or killing yourself?", "Are you here because you tried to hurt yourself?", "Have you ever tried to hurt yourself before today?", "Have you recently had thoughts about harming or killing others?" and "Do you have any dangerous items in your possession?". FALL RISK ASSESSMENT: Fall risk assessment completed. No fall risk identified. NUTRITIONAL RISK ASSESSMENT: The nutritional risk assessment revealed no deficiencies. FUNCTIONAL ASSESSMENT: Functional assessment: no impairments noted. LEARNING NEEDS ASSESSMENT: The learning needs assessment revealed no barriers. SKIN INTEGRITY ASSESSMENT: Skin integrity risk assessment completed. No skin integrity risk identified. --22:04 Bettina Espinal R.N. PROBLEMS: Chest Pain. Hypotension. Bursitis. Tetanus Status. Sprain. Prior Injury, Same Area. Hyperlipidemia. Hypertension. --22:02 Bettina Espinal R.N. ADDITIONAL SURGERIES: Cardiac stent. Knee Surgery. Shoulder Surgery. --22:02 Bettina Espinal R.N. Interventions ID band on patient. --22:04 Bettina Espinal R.N. PHYSICAL ASSESSMENT Ambulatory to room. GENERAL / NEURO / PSYCH: Oriented X 4. Alert. Appears in no acute distress. He has had new onset of constant numbness of the left foot. CVS: Pulses: right popliteal per doppler, left popliteal per doppler, right dorsalis pedis per doppler and left dorsalis pedis per doppler. EXTREMITIES: Extremities exhibit normal ROM. No lower extremity edema. Normal gait. Left ankle: (numbness). Left foot: (numbness). SKIN: Skin intact. Skin is warm and dry. --22:06 Bettina Espinal R.N. NURSING PROGRESS NOTES Patient gowned. Two patient identifiers checked. Call light placed in reach. Side rails up x 1. Bed placed in lowest position. Brakes of bed on. --22:06 Bettina Espinal R.N. Patient ready for evaluation- chart flagged. --22:06 Bettina Espinal R.N. 23:00 07/13/16. BP: 107/61. HR: 69. RR: 16. O2 saturation: 96% on room air. Temp: 98.2 F. Pain level now: 0/10. --23:01 Dolores Herron R.N. Patient ID band checked for patient name: patient confirmed. Blood samples drawn from the right antecubital space with 23g butterfly by nurse per protocol ; labeled in presence of the patient and sent to lab: mookie set. --23:57 Bettina Espinal R.N. Overall patient status is improved- he states feels better. GENERAL / NEURO / PSYCH: Alert. Oriented X 4. RESPIRATORY: No respiratory distress. CVS: Capillary refill less than 2 seconds. EXTREMITIES: Neuro-vascular status intact to the extremities. SKIN: Skin is warm and dry. --23:57 Bettina Espinal R.N. Two patient identifiers checked. Call light placed in reach. Side rails up x 2. Bed placed in lowest position. Brakes of bed on. --23:57 Bettina Espinal R.N. ( US Tech at bedside to perform US exam). --00:34 Dolores Herron R.N. 00:39 07/14/16. BP: 107/60. HR: 65. RR: 14. O2 saturation: 97% on room air. Temp: 97.9 F (oral). Pain level now: 0/10. --00:40 Dolores Herron R.N. DISPOSITION / DISCHARGE Condition at departure: improved and stable. No learning barriers present. Discharge instructions provided and reviewed with the patient and spouse. Reviewed referral to a vascular surgeon for followup. Patient verbalized understanding. Written instructions provided in [place]. No medication instructions or treatment instructions. The patient was discharged home and accompanied by spouse. He left the Emergency Department ambulatory and via private vehicle. Spouse driving. --02:29 Bettina Espinal R.N. 02:28 07/14/16. BP: 95/62 taken on the left arm, while sitting. HR: 78 (regular and normal rate). RR: 18 (regular and unlabored). O2 saturation: 99% on room air. Temp: deferred. Pain level now: 0/10. --02:29 Bettina Espinal R.N. Departure time: 221. --02:29 Bettina Espinal R.N. Locked/Released at 07/14/2016 2:30 by Bettina Espinal R.N.
--- NOTE | 2016-07-14 02:17 | ED CLINICAL REPORT ---
Clinical Report - Physicians/Mid Levels [facility] [address] [place] [address] 07/13/2016 21:42 [id number] Time Seen: 21:53. Arrived- By private vehicle. Historian- patient. HISTORY OF PRESENT ILLNESS Chief Complaint: PARESTHESIA. The patient has had numbness, and tingling. No weakness, impaired speech or swallowing, visual disturbance or recent fall. No difficulty walking. This started today and is still present. At its maximum deficit described as moderate. When seen in the E.D.,deficit described as moderate. No dizziness, altered mental status, seizure or blackouts. Usually is alert and oriented X3 and has normal mobility. (Pt states he has a h/o stenosis in both femoral arteries, and is scheduled for a pre-op soon. Pt states he has had no pain. His other foot has decent, but not full, sensation, also.). Similar symptoms previously: None. Recent medical care: The patient was seen recently at another facility. REVIEW OF SYSTEMS No fever, headache, head injury, chest pain or difficulty breathing. No cough, sputum production, sore throat, abdominal pain or nausea. No diarrhea, black stools, difficulty with urination, skin rash or enlarged lymph nodes. No vomiting, bloody stools or back pain. The patient has had joint pain (Pt had recent surgery.), involving the left shoulder. All systems otherwise negative, except as recorded above. PAST HISTORY Problems: Bursitis. Tetanus Status. Immunizations. Sprain. Hyperlipidemia. Hypertension. Additional Surgeries: Cardiac stent. Knee Surgery. Shoulder Surgery. Medications: Plavix Oral (Tablet 75 mg) 1 tablet, daily. AmLODIPine Besylate Oral (Tablet 10 mg) 1 tablet, daily. Aspirin Oral (Tablet Chewable 81 mg) 1 tablet, daily. Hydrochlorothiazide Oral. Lisinopril Oral (Tablet 10 mg) 1/2 tablet, daily. Allergies: No Known Drug Allergy. SOCIAL HISTORY Smoker- current status unknown. No alcohol use or drug use. ADDITIONAL NOTES The nursing notes have been reviewed. PHYSICAL EXAM Vital Signs: 07/13/2016 21:55 BP: 130/71. HR: 71. RR: 18. O2 saturation: 97%. Temp: 98.1 F. Pain level now: 0/10. Have been reviewed. Appearance: Alert. No acute distress. Head: Head atraumatic. Eyes: Pupils equal, round and reactive to light. ENT: Normal ENT inspection. Airway intact. Neck: Normal inspection. CVS: Normal heart rate and rhythm. Diminished right and left posterior tibial pulse and right and left dorsalis pedis pulse (PT has very strong pulses by doppler, however.). Heart sounds normal. Respiratory: No respiratory distress. Breath sounds normal. Back: Normal inspection. Skin: Skin warm and dry. Normal skin color. No rash. Normal skin turgor. (Skin is the same tone bilaterally.). Extremities: Extremities exhibit normal ROM. No lower extremity edema. Neuro: Alert. Oriented X 3. Mood/affect normal. Speech normal. Cranial nerves normal (as tested). No cerebellar findings. No motor deficit. Sensory deficit present. (distally). Altered sensation to light touch on the left leg. Altered sensation to pinprick on the left leg. LABS, X-RAYS, AND EKG CT Head: Normal study. No acute changes. No bony abnormalities, no hemorrhage, no intracranial mass, no midline shift and no hydrocephalus. No atrophy. Head CT performed without contrast. The study was independently viewed by me, interpreted by the radiologist and contemporaneously by me and discussed with the radiologist. Prior studies were not available for comparison. Note - Special Studies: Arterial US of bilateral lower extremities showed greater stenosis on the L than the R, but distal flow was more equal. Laboratory Tests: PT with INR: (JAMILA: 07/13/2016 23:50) ( MsgRcvd 07/14/2016 00:16) Final results Test Result Flag Units (Reference) INR 0.9 (0.8-1.2) Low Intensity Therapy: INR 1.5-2.0 PT range 18.5-23.1Mod.Intensity Therapy: INR 2.0-3.0 PT range 23.1-31.5High Intensity Therapy: INR 2.5-3.5 PT range 27.4-35.5High Intensity Therapy 2: INR 3.0-4.0 PT range 31.5-39.3 CMP: (JAMILA: 07/13/2016 23:50) ( MsgRcvd 07/14/2016 00:15) Final results Test Result Flag Units (Reference) GLUCOSE 130 H mg/dL (70-110) BUN 45 H mg/dL (7-18) CREATININE 2.1 H mg/dL (0.6-1.3) Estimated GFR 34.18 mL/min Estimated GFR- 41.43 mL/min Note: Persistent reduction over 3 months in eGFR<60 mL/min/1.73 m2 defines CKD. Patients with eGFR values>=60 mL/min/1.73 m2 may also have CKD if evidence ofpersistent proteinuria. Additional information may be foundat www.kidney.org. SODIUM 138 mmol/L (136-145) POTASSIUM 3.6 mmol/L (3.5-5.1) CHLORIDE 101 mmol/L (98-107) CARBON DIOXIDE 27 mmol/L (21-32) CALCIUM 8.9 mg/dL (8.5-10.1) TOTAL PROTEIN 7.2 g/dL (6.4-8.2) ALBUMIN 3.6 g/dL (3.3-5.0) BILIRUBIN, TOTAL 0.3 mg/dL (0.0-1.0) ALKALINE PHOSPHATASE 95 U/L (46-116) AST (SGOT) 17 U/L (15-37) ALT (SGPT) 33 U/L (12-78) . Pulse Oximetry: 07/13/2016 21:55 O2 saturation: 97%. (FIO2 - room air). Interpretation: normal. PROGRESS AND PROCEDURES Course of Care: Pt was worked up for his sx, in light of his known vascular dz. Pt did have good doppler pulses, which was reassuring, and his skin tone was symmetrical. Though the US showed greater stenosis proximally in the LLE, the overall flow distally was roughly equivalent. I did not feel the pt was suffering an ischemic extremity, and although the problem needs to be addressed, no emergent intervention is indicated at this time. Additionally, pt's work-up showed no evidence of an intracranial process, electrolyte disorder, or anemia, which would be expected to cause his sx. Patient and spouse counseled in person regarding the patient's stable condition, test results, diagnosis and need for follow-up. Concerns were addressed. Old medical records reviewed. Disposition: Discharged. Condition: stable. CLINICAL IMPRESSION Paresthesia (Chronic arterial occlusion.). INSTRUCTIONS (Your labs and CT scan look good. Your ultrasound shows decreased flow through your left common femoral artery, when compared with the right, but the blood flow in the lower legs and feet is closer to equal. You should call your surgeon's office in the morning, to get an appointment set up. If you develop a strong pain in your leg or foot that does not resolve within a few minutes, you should be rechecked in the emergency department.). Warnings: GENERAL WARNINGS: Return or contact your physician immediately if your condition worsens or changes unexpectedly, if not improving as expected, or if other problems arise. Your Current Medications: CONTINUE TAKING THE FOLLOWING MEDICATIONS: AmLODIPine Besylate Oral : Tablet 10 mg, 1 tablet daily. Aspirin Oral : Tablet Chewable 81 mg, 1 tablet daily. Hydrochlorothiazide Oral. Lisinopril Oral : Tablet 10 mg, 1/2 tablet daily. Plavix Oral : Tablet 75 mg, 1 tablet daily. Follow-up: Follow up with a vascular surgeon. Call for the next available appointment. Understanding of the discharge instructions verbalized by patient and family. (Electronically signed by Galina Goldstein MD 07/22/2016 11:56)
--- NOTE | 2016-07-14 02:17 | ED ORDER SUMMARY ---
..... Patient: ARTURO MARTINS OrderSheet [facility] VisitID: [id number] [place] [address] 61y, M Registration Date/Time: 07/13/2016 ORDER SHEET Weight: 91.1 kg (stated) Allergies: No Known Drug Allergy GENERAL ORDERS: US Art Low Ext Doppler Bilat Urgent (22:09 07/13/2016 Abbie FLORES) (0:42 Lara R.N.) CT Head wo Cont Urgent (23:18 07/13/2016 Abbie FLORES) (23:43 Ankita) CBC w Diff Urgent (23:18 07/13/2016 Abbie FLORES) (23:56 Joann R.N.) CMP Urgent (23:07/13/2016 Abbie FLORES) (23:56 Joann R.N.) PT with INR Urgent (23:18 07/13/2016 Abbie FLORES) (23:56 Joann R.N.) MEDICATION ORDERS: IV FLUIDS: ORDER SHEET NOTES: [Electronically signed by Bettina Espinal R.N. (02:07/14/2016)] [Electronically signed by Galina Goldstein MD (11:56 07/22/2016)] [Electronically locked/signed by Bettina Espinal R.N. (07/14/2016)]
--- NOTE | 2016-07-14 02:17 | ED ORDER SUMMARY ---
..... Patient: ARTURO MARTINS OrderSheet [facility] VisitID: [id number] [place] [address] 61y, M Registration Date/Time: 07/13/2016 ORDER SHEET Weight: 91.1 kg (stated) Allergies: No Known Drug Allergy GENERAL ORDERS: US Art Low Ext Doppler Bilat Urgent (22:09 07/13/2016 Abbie FLORES) (0:42 Lara R.N.) CT Head wo Cont Urgent (23:18 07/13/2016 Abbie FLORES) (23:43 Ankita) CBC w Diff Urgent (23:18 07/13/2016 Abbie FLORES) (23:56 Joann R.N.) CMP Urgent (23:07/13/2016 Abbie FLORES) (23:56 Joann R.N.) PT with INR Urgent (23:18 07/13/2016 Abbie FLORES) (23:56 Joann R.N.) MEDICATION ORDERS: IV FLUIDS: ORDER SHEET NOTES: [Electronically signed by Bettina Espinal R.N. (02:07/14/2016)] [Electronically signed by Galina Goldstein MD (11:56 07/22/2016)] [Electronically locked/signed by Bettina Espinal R.N. (07/14/2016)]
--- NOTE | 2016-07-14 07:54 | DIAGNOSTIC IMAGING REPORT ---
PROCEDURE: US ART LOWER EXT DOPPLER-BILAT INDICATION: LT FOOT PAIN TECHNIQUE: Color Doppler duplex imaging of the bilateral lower extremity arterial system was performed. COMPARISON: None. FINDINGS: Right leg: VESSELS/ WAVEFORMS: Monophasic arterial inflow. Mid right superficial femoral artery demonstrates no flow, but small collateral vessel arising just proximal to this, which joints of the [place] SFA in the distal segment. Distal SFA is diminutive. Calf vessels are diminutive demonstrating monophasic flow. PEAK SYSTOLIC VELOCITIES: Common femoral artery: 66 cm/second. Proximal superficial femoral artery: 24 cm/second. Mid superficial femoral artery: 37 cm/second. Distal superficial femoral artery: 43 cm/second. Popliteal artery: 15 cm/second. Distal posterior tibial artery: 18 cm/second. Dorsalis pedis artery: 34 cm/second. Left leg: VESSELS/ WAVEFORMS: Monophasic arterial inflow with a very blunted wave form. Minimal flow in the superficial femoral artery. There is reconstitution of monophasic flow in the mid to distal segment. There is flow in the dorsalis pedis and posterior tibial arteries, also monophasic. PEAK SYSTOLIC VELOCITIES: Common femoral artery: 10 cm/second. Proximal superficial femoral artery: Seven cm/second. Mid superficial femoral artery: 24 cm/second. Distal superficial femoral artery: 36 cm/second. Popliteal artery: 15 cm/second. Distal posterior tibial artery: 24 cm/second. Dorsalis pedis artery: 23 cm/second. IMPRESSION: 1. 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 2. Probable right mid superficial femoral arterial stenosis with collateral. 3. Probable left proximal superficial femoral artery stenosis, collateral not visible. 4. Diminutive vessels with monophasic flow consistent with systemic atherosclerosis.
--- NOTE | 2016-07-22 11:57 | ED MED RECONCILIATION SUMMARY ---
Patient: ARTURO MARTINS Medication Reconciliation Report [facility] VisitID: [id number] [address] [place] [address] 61y, M Registration Date/Time: 07/13/2016 Weight: 91.1 kg Height/Length: 71 in. BMI: 28.0 ALLERGIES: No Known Drug Allergy The patient's Home Medications are listed below: CONTINUE TAKING THE FOLLOWING MEDICATIONS: AmLODIPine Besylate Oral (10 mg) 1 tablet, daily Aspirin Oral (81 mg) 1 tablet, daily Hydrochlorothiazide Oral Lisinopril Oral (10 mg) 1/2 tablet, daily Plavix Oral (75 mg) 1 tablet, daily The source(s) of the original Home Medication information: Not obtained. The following Medications were given to the patient in the Emergency Department: None. The following Medications were prescribed to the patient: None.
--- NOTE | 2016-07-22 11:57 | ED MAR SUMMARY ---
..... Medication Administration Record [facility] [address] [place] [address] Patient: ARTURO MARTINS Visit ID: [id number] 61y, M Weight: 91.1 kg Height/Length: 71 in BMI: 28 ALLERGIES: No Known Drug Allergy
--- NOTE | 2016-07-22 11:57 | ED MED RECONCILIATION SUMMARY ---
Patient: ARTURO MARTINS Medication Reconciliation Report [facility] VisitID: [id number] [address] [place] [address] 61y, M Registration Date/Time: 07/13/2016 Weight: 91.1 kg Height/Length: 71 in. BMI: 28.0 ALLERGIES: No Known Drug Allergy The patient's Home Medications are listed below: CONTINUE TAKING THE FOLLOWING MEDICATIONS: AmLODIPine Besylate Oral (10 mg) 1 tablet, daily Aspirin Oral (81 mg) 1 tablet, daily Hydrochlorothiazide Oral Lisinopril Oral (10 mg) 1/2 tablet, daily Plavix Oral (75 mg) 1 tablet, daily The source(s) of the original Home Medication information: Not obtained. The following Medications were given to the patient in the Emergency Department: None. The following Medications were prescribed to the patient: None.
--- NOTE | 2016-07-22 11:57 | ED MAR SUMMARY ---
..... Medication Administration Record [facility] [address] [place] [address] Patient: ARTURO MARTINS Visit ID: [id number] 61y, M Weight: 91.1 kg Height/Length: 71 in BMI: 28 ALLERGIES: No Known Drug Allergy
--- NOTE | 2016-07-22 11:57 | ED DISCHARGE INSTRUCTIONS ---
Patient: ARTURO MARTINS General Instructions [facility] VisitID: [id number] [place] [address] 61y, M Registration Date/Time: 07/13/2016 Paresthesia (Chronic arterial occlusion.). INSTRUCTIONS (Your labs and CT scan look good. Your ultrasound shows decreased flow through your left common femoral artery, when compared with the right, but the blood flow in the lower legs and feet is closer to equal. You should call your surgeon's office in the morning, to get an appointment set up. If you develop a strong pain in your leg or foot that does not resolve within a few minutes, you should be rechecked in the emergency department.). Warnings: GENERAL WARNINGS: Return or contact your physician immediately if your condition worsens or changes unexpectedly, if not improving as expected, or if other problems arise. Your Current Medications: CONTINUE TAKING THE FOLLOWING MEDICATIONS: AmLODIPine Besylate Oral : Tablet 10 mg, 1 tablet daily. Aspirin Oral : Tablet Chewable 81 mg, 1 tablet daily. Hydrochlorothiazide Oral. Lisinopril Oral : Tablet 10 mg, 1/2 tablet daily. Plavix Oral : Tablet 75 mg, 1 tablet daily. Follow-up: Follow up with a vascular surgeon. Call for the next available appointment. Understanding of the discharge instructions verbalized by patient and family. ADDITIONAL INFORMATION Paraesthesias Paraesthesia refers to a burning or prickling sensation that is sometimes felt in the hands, arms, legs or feet. It can also occur in other parts of the body. It can also feel like tingling or numbness, skin crawling or itching.The sensation is usually painless. Most people have experienced pins and needles. This feeling happens when legs have been crossed for too long and pressure is placed on a nerve. This is a temporary paraesthesia. It quickly goes away once the pressure is relieved. There are many possible causes for chronic paraesthesias. These include such disorders as stroke, herniated disk (pressing on a nerve), trapped nerve in the shoulder, elbow or wrist (such as carpal tunnel syndrome), vitamin deficiencies or even certain medicines. Laboratory tests are needed to make an accurate diagnosis. These tests may include blood tests, X-ray, CT (computerized tomography) scan or a muscle test (electromyography).Depending on the cause, treatment may include physical therapy. Home Care: Do not make any changes to your medicines without advice from your doctor. If vitamins have been prescribed, remember to take them daily at the recommended dose. Because of a decrease in feeling, a numb hand or foot may be more prone to injury. Take care to protect these areas from cuts, bumps, bruises, huang or other injury. Keep your nails trimmed and wash your hands and feet often. Wear shoes that fit well to avoid pressure points, blisters and ulcers. Look at your hands and feet carefully (including the soles of your feet and between your toes) at least once a week and notify your doctor of any open wounds or signs of infection. Follow Up with your doctor or as advised by our staff. You may need further testing to determine the exact cause of your paraesthesia. [NOTE: If blood tests, X-ray, CT scan or electromyography were done, specialists will review them. You will be notified of any new findings that may affect your care.] Get Prompt Medical Attention if any of the following occur: Numbness or weakness of the face, one arm or one leg Slurred speech, confusion, trouble speaking, walking or seeing Severe headache, fainting spell, dizziness or seizure Chest, arm, neck or upper back pain Loss of bladder or bowel control Open wound with redness, swelling or pus You have been given the following additional information: Paraesthesias (Electronically signed by Galina Goldstein MD 07/22/2016 11:56)
== END 2016-07-14 02:22 | disposition home or self-care (01) ==
LOC: ED SRH 21:43
DX: R20.2 Paresthesia of skin (principal); I77.1 Stricture of artery; I10 Essential (primary) hypertension; Z79.899 Other long term (current) drug therapy; Z79.82 Long term (current) use of aspirin
CPT/HCPCS: 90100; 91643; 94060; 95059

== ENCOUNTER → 2016-07-14 | Emergency (ER) | payer OTHER ==
--- NOTE | 2016-07-14 22:11 | ED CLINICAL REPORT ---
Clinical Report - Physicians/Mid Levels [facility] [address] [place] [address] 07/14/2016 20:35 Patient: ARTURO MARTINS Time Seen: 21:20. Arrived- By private vehicle. Historian- patient. HISTORY OF PRESENT ILLNESS Chief Complaint: Chief Complaint- Worse LLE numbness and pain without injury. The injury happened today. (Location of injury is NA no injury). ( Worse numbness at 530 or 6 Numb back side of leg to ankle to bottom Pain - at rest 5-6 walking 9-10 new today.). Patient is experiencing moderate pain. No other injury. (Seen here yesterday: Ultrasound from yesterday REPORT #: [id number] DATE OF EXAM(S): 07/14/16 PROCEDURE: US ART LOWER EXT DOPPLER-BILAT INDICATION: LT FOOT PAIN TECHNIQUE: Color Doppler duplex imaging of the bilateral lower extremity arterial system was performed. COMPARISON: None. FINDINGS: Right leg: VESSELS/ WAVEFORMS: Monophasic arterial inflow. Mid right superficial femoral artery demonstrates no flow, but small collateral vessel arising just proximal to this, which joints of the [place] SFA in the distal segment. Distal SFA is diminutive. Calf vessels are diminutive demonstrating monophasic flow. PEAK SYSTOLIC VELOCITIES: Common femoral artery: 66 cm/second. Proximal superficial femoral artery: 24 cm/second. Mid superficial femoral artery: 37 cm/second. Distal superficial femoral artery: 43 cm/second. Popliteal artery: 15 cm/second. Distal posterior tibial artery: 18 cm/second. Dorsalis pedis artery: 34 cm/second. Left leg: VESSELS/ WAVEFORMS: Monophasic arterial inflow with a very blunted wave form. Minimal flow in the superficial femoral artery. There is reconstitution of monophasic flow in the mid to distal segment. There is flow in the dorsalis pedis and posterior tibial arteries, also monophasic. PEAK SYSTOLIC VELOCITIES: Common femoral artery: 10 cm/second. Proximal superficial femoral artery: Seven cm/second. Mid superficial femoral artery: 24 cm/second. Distal superficial femoral artery: 36 cm/second. Popliteal artery: 15 cm/second. Distal posterior tibial artery: 24 cm/second. Dorsalis pedis artery: 23 cm/second. IMPRESSION: 1. 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 2. Probable right mid superficial femoral arterial stenosis with collateral. 3. Probable left proximal superficial femoral artery stenosis, collateral not visible. 4. Diminutive vessels with monophasic flow consistent with systemic atherosclerosis. Dictated by: RUBENS EDMONDSON MD D: THERONKR;07/14/16753 <Electronically signed by RUBENS EDMONDSON MD in OV> 07/14/16753). REVIEW OF SYSTEMS The patient has had numbness. No swelling, weakness, suspected foreign body or skin laceration. He has no pain on weight bearing. PAST HISTORY ( PCP: [facility] PROBLEMS: Paresthesia. Chest Pain. Hypotension. Bursitis. Tetanus Status. Immunizations. Sprain. Prior Injury, Same Area. Hyperlipidemia. Hypertension. --20:46 Silvana Up R.N. ADDITIONAL SURGERIES: Cardiac stent. Knee Surgery. Shoulder Surgery. --20:46 Silvana Up R.N.). SOCIAL HISTORY Current every day smoker. ADDITIONAL NOTES The nursing notes have been reviewed. PHYSICAL EXAM Vital Signs: 07/14/2016 22:23 BP: 136/77. 07/14/2016 22:23 BP: 111/63. HR: 66. RR: 16. O2 saturation: 96%. Pain level now: 07/16. 07/14/2016 20:42 BP: 141/68. HR: 74. RR: 16. O2 saturation: 99%. Temp: 98.4 F. Pain level now: 07/16. Appearance: Alert. No acute distress. Respiratory: No respiratory distress. Abdomen: Soft and nontender. No mass present. (Barely palbable femoral pulses bilaterally). Back: No vertebral point tenderness or soft tissue tenderness. Extremities: (Both legs pink and warm. LLE no palpable pulses in the foot or popliteal fossa. Some decreased sensation in the LLE. SLR is positive at 50 degrees on the L). Neuro, Vascular and Tendons: Pulse deficit present. Capillary refill not prolonged. Sensory deficit. Neuro: No alteration in mental status. PROGRESS AND PROCEDURES Course of Care: 21:37 07/14/16. Kenneth Tariq - paged 21:44 07/14/16. Dr Martinez collection systems consultant/paged. 21:57 07/14/16. Dr Martinez - discussed current findings and yesterdays dopler studies. My assessment is that the patient has worsening claudication and worsening rest pain without immediate risk of limb loss. It is pink and warm. My request is that Mr. Martins be evaluated tomorrow by Dr Bush or Piter. Dr Martinez will communicate with Dr. Thompson to make that happen. The patient is instructed on plan as described below. Disposition: Discharged. Condition: stable. CLINICAL IMPRESSION PERIPHERAL VASCULAR DISEASE LLE REST PAIN AND CLAUDICATION - NOW WORSE. INSTRUCTIONS (EXPECT A CALL FROM DR Bush'S OFFICE IN THE MORNING WITH INSTRUCTIONS IF YOU DO NOT HEAR FROM THEN CALL IN THE EARLY AFTERNOON. YOU NEED A RE EVALUATION ON THE PONE OR IN PERSON TOMORROW TO SEE IF THE CURRENT VASCULAR PLAN NEEDS TO BE CHANGED. IMMEDIATE RECHECK FOR WORSE PAIN, COOLNESS, BLUENESS OF THE L LEG OR FOOT.). Understanding of the discharge instructions verbalized. (Electronically signed by Arturo Monroe MD 07/18/2016 13:14)
--- NOTE | 2016-07-14 22:11 | ED NURSING NOTES ---
Clinical Report - Nurses [place] [address] [place] [address] 07/14/2016 20:35 [id number] TRI[facility] Triage time 20:42 Jul 14 2016. Acuity: LEVEL 3. Chief Complaint: LEFT LOWER EXTREMITY PAIN and NUMBNESS. Alert. No acute distress. VINOD COMA SCORE: Vinod Coma Scale: 15- eyes open spontaneously (4); best verbal response- oriented x 4 (5); best motor response- obeys commands (6). --20:48 Silvana Up R.N. 20:42 07/14/16. BP: 141/68. HR: 74. RR: 16. O2 saturation: 99%. Temp: 98.4 F. Pain level now: 07/16. --20:48 Silvana Up R.N. Weight: 90.7 kg stated. Height/Length: 71 inches Per Patient. BMI: 27.9. --20:48 Silvana Up R.N. Medications AmLODIPine Besylate Oral (Tablet 10 mg) 1 tablet, daily. --20:43 Silvana Up R.N. Clopidogrel Bisulfate Oral (Tablet 75 mg) 1 tablet, daily. --20:44 Silvana Up R.N. Lisinopril Oral (Tablet 5 mg) 1 tablet, 2x a day. Pantoprazole Sodium Oral. --20:44 Silvana Up R.N. Atorvastatin Calcium Oral. Pantoprazole Sodium Oral (Tablet Delayed Release 40 mg) 1 tablet, daily. --20:44 Silvana Up R.N. Atorvastatin Calcium Oral (Tablet 40 mg) 1 tablet, daily. Hydrochlorothiazide Oral. --20:45 Silvana Up R.N. Hydrochlorothiazide Oral (Tablet 25 mg) 1 tablet, daily. Metoprolol Tartrate Oral. --20:45 Silvana Up R.N. Aspirin Oral. Metoprolol Tartrate Oral (Tablet 25 mg) 1 tablet, 2x daily. --20:45 Silvana Up R.N. Aspirin Oral (Tablet Chewable 81 mg) 1 tablet, daily. --20:45 Silvana Up R.N. Allergies None. --20:45 Silvana Up R.N. History Arrived by private vehicle. Historian: patient. Accompanied by family. No injury occurred. It is described as radiating to the left buttocks. He has had trouble walking and weakness. 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 PAST MEDICAL HX: Tetanus status: up-to-date. Immunizations: up-to-date. SOCIAL HX: Current every day heavy tobacco smoker (cigarette)- less than 1 pack per day. No alcohol use or drug use. No infectious disease exposure. SELF HARM ASSESSMENT: A self harm assessment was performed. The patient answered "no" to the question "Do you have thoughts of harming or killing yourself?". FALL RISK ASSESSMENT: Fall risk assessment completed. No fall risk identified. NUTRITIONAL RISK ASSESSMENT: The nutritional risk assessment revealed no deficiencies. FUNCTIONAL ASSESSMENT: Functional assessment: no impairments noted. LEARNING NEEDS ASSESSMENT: The learning needs assessment revealed no barriers. ABUSE ASSESSMENT: Abuse assessment: The patient was asked "Do you feel safe in your home?". SKIN INTEGRITY ASSESSMENT: Skin integrity risk assessment completed. No skin integrity risk identified. --20:48 Silvana Up R.N. PROBLEMS: Paresthesia. Chest Pain. Hypotension. Bursitis. Tetanus Status. Immunizations. Sprain. Prior Injury, Same Area. Hyperlipidemia. Hypertension. --20:46 Silvana Up R.N. ADDITIONAL SURGERIES: Cardiac stent. Knee Surgery. Shoulder Surgery. --20:46 Silvana Up R.N. Interventions ID band on patient. To room. --20:48 Silvana Up R.N. PHYSICAL ASSESSMENT Ambulatory to room. GENERAL / NEURO / PSYCH: Oriented X 4. Alert. Appears in no acute distress. CVS: Pulses: right dorsalis pedis 1+ and left dorsalis pedis 0. EXTREMITIES: Constant left-sided calf tenderness. No lower extremity edema. Left leg: tenderness of the posterior aspect of mid leg. SKIN: Skin is warm and dry. --20:51 Silvana Up R.N. NURSING PROGRESS NOTES Patient gowned. Patient identifiers checked. Call light placed in reach. Side rails up x 1. Bed placed in lowest position. Brakes of bed on. --20:51 Silvana Up R.N. DISPOSITION / DISCHARGE 22:23 07/14/16. BP: 111/63 taken on the left arm. HR: 66. RR: 16. O2 saturation: 96%. Pain level now: 07/16. --22:23 Silvana Up R.N. Departure time: 22:24 Jul 14 2016. Condition at departure: unchanged. No learning barriers present. Discharge instructions provided and reviewed with the patient. Reviewed referral to a chief safety officer for followup. Patient verbalized understanding. Written instructions provided in Irish. The patient was discharged home and accompanied by spouse. He left the Emergency Department ambulatory and via private vehicle. Patient driving. FALL RISK ASSESSMENT: Fall risk assessment completed. No fall risk identified. --22:24 Sivlana Up R.N. 22:23 07/14/16. BP: 136/77 taken on the right arm. --22:24 Silvana Up R.N. Locked/Released at 07/15/2016 13:28 by Silvana Up R.N.
--- NOTE | 2016-07-14 22:11 | ED NURSING NOTES ---
Clinical Report - Nurses [place] [address] [place] [address] 07/14/2016 20:35 [id number] TRI[facility] Triage time 20:42 Jul 14 2016. Acuity: LEVEL 3. Chief Complaint: LEFT LOWER EXTREMITY PAIN and NUMBNESS. Alert. No acute distress. VINOD COMA SCORE: Vinod Coma Scale: 15- eyes open spontaneously (4); best verbal response- oriented x 4 (5); best motor response- obeys commands (6). --20:48 Silvana Up R.N. 20:42 07/14/16. BP: 141/68. HR: 74. RR: 16. O2 saturation: 99%. Temp: 98.4 F. Pain level now: 07/16. --20:48 Silvana Up R.N. Weight: 90.7 kg stated. Height/Length: 71 inches Per Patient. BMI: 27.9. --20:48 Silvana Up R.N. Medications AmLODIPine Besylate Oral (Tablet 10 mg) 1 tablet, daily. --20:43 Silvana Up R.N. Clopidogrel Bisulfate Oral (Tablet 75 mg) 1 tablet, daily. --20:44 Silvana Up R.N. Lisinopril Oral (Tablet 5 mg) 1 tablet, 2x a day. Pantoprazole Sodium Oral. --20:44 Silvana Up R.N. Atorvastatin Calcium Oral. Pantoprazole Sodium Oral (Tablet Delayed Release 40 mg) 1 tablet, daily. --20:44 Silvana Up R.N. Atorvastatin Calcium Oral (Tablet 40 mg) 1 tablet, daily. Hydrochlorothiazide Oral. --20:45 Silvana Up R.N. Hydrochlorothiazide Oral (Tablet 25 mg) 1 tablet, daily. Metoprolol Tartrate Oral. --20:45 Silvana Up R.N. Aspirin Oral. Metoprolol Tartrate Oral (Tablet 25 mg) 1 tablet, 2x daily. --20:45 Silvana Up R.N. Aspirin Oral (Tablet Chewable 81 mg) 1 tablet, daily. --20:45 Silvana Up R.N. Allergies None. --20:45 Silvana Up R.N. History Arrived by private vehicle. Historian: patient. Accompanied by family. No injury occurred. It is described as radiating to the left buttocks. He has had trouble walking and weakness. 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 PAST MEDICAL HX: Tetanus status: up-to-date. Immunizations: up-to-date. SOCIAL HX: Current every day heavy tobacco smoker (cigarette)- less than 1 pack per day. No alcohol use or drug use. No infectious disease exposure. SELF HARM ASSESSMENT: A self harm assessment was performed. The patient answered "no" to the question "Do you have thoughts of harming or killing yourself?". FALL RISK ASSESSMENT: Fall risk assessment completed. No fall risk identified. NUTRITIONAL RISK ASSESSMENT: The nutritional risk assessment revealed no deficiencies. FUNCTIONAL ASSESSMENT: Functional assessment: no impairments noted. LEARNING NEEDS ASSESSMENT: The learning needs assessment revealed no barriers. ABUSE ASSESSMENT: Abuse assessment: The patient was asked "Do you feel safe in your home?". SKIN INTEGRITY ASSESSMENT: Skin integrity risk assessment completed. No skin integrity risk identified. --20:48 Silvana Up R.N. PROBLEMS: Paresthesia. Chest Pain. Hypotension. Bursitis. Tetanus Status. Immunizations. Sprain. Prior Injury, Same Area. Hyperlipidemia. Hypertension. --20:46 Silvana Up R.N. ADDITIONAL SURGERIES: Cardiac stent. Knee Surgery. Shoulder Surgery. --20:46 Silvana Up R.N. Interventions ID band on patient. To room. --20:48 Silvana Up R.N. PHYSICAL ASSESSMENT Ambulatory to room. GENERAL / NEURO / PSYCH: Oriented X 4. Alert. Appears in no acute distress. CVS: Pulses: right dorsalis pedis 1+ and left dorsalis pedis 0. EXTREMITIES: Constant left-sided calf tenderness. No lower extremity edema. Left leg: tenderness of the posterior aspect of mid leg. SKIN: Skin is warm and dry. --20:51 Silvana Up R.N. NURSING PROGRESS NOTES Patient gowned. Patient identifiers checked. Call light placed in reach. Side rails up x 1. Bed placed in lowest position. Brakes of bed on. --20:51 Silvana Up R.N. DISPOSITION / DISCHARGE 22:23 07/14/16. BP: 111/63 taken on the left arm. HR: 66. RR: 16. O2 saturation: 96%. Pain level now: 07/16. --22:23 Silvana Up R.N. Departure time: 22:24 Jul 14 2016. Condition at departure: unchanged. No learning barriers present. Discharge instructions provided and reviewed with the patient. Reviewed referral to a bioinformatics developer for followup. Patient verbalized understanding. Written instructions provided in Croatian. The patient was discharged home and accompanied by spouse. He left the Emergency Department ambulatory and via private vehicle. Patient driving. FALL RISK ASSESSMENT: Fall risk assessment completed. No fall risk identified. --22:24 Silvana Up R.N. 22:23 07/14/16. BP: 136/77 taken on the right arm. --22:24 Silvana Up R.N. Locked/Released at 07/15/2016 13:28 by Silvana Up R.N.
--- NOTE | 2016-07-14 22:11 | ED CLINICAL REPORT ---
Clinical Report - Physicians/Mid Levels [facility] [address] [place] [address] 07/14/2016 20:35 Patient: ARTURO MARTINS Time Seen: 21:20. Arrived- By private vehicle. Historian- patient. HISTORY OF PRESENT ILLNESS Chief Complaint: Chief Complaint- Worse LLE numbness and pain without injury. The injury happened today. (Location of injury is NA no injury). ( Worse numbness at 530 or 6 Numb back side of leg to ankle to bottom Pain - at rest 5-6 walking 9-10 new today.). Patient is experiencing moderate pain. No other injury. (Seen here yesterday: Ultrasound from yesterday REPORT #: [id number] DATE OF EXAM(S): 07/14/16 PROCEDURE: US ART LOWER EXT DOPPLER-BILAT INDICATION: LT FOOT PAIN TECHNIQUE: Color Doppler duplex imaging of the bilateral lower extremity arterial system was performed. COMPARISON: None. FINDINGS: Right leg: VESSELS/ WAVEFORMS: Monophasic arterial inflow. Mid right superficial femoral artery demonstrates no flow, but small collateral vessel arising just proximal to this, which joints of the three affiliated SFA in the distal segment. Distal SFA is diminutive. Calf vessels are diminutive demonstrating monophasic flow. PEAK SYSTOLIC VELOCITIES: Common femoral artery: 66 cm/second. Proximal superficial femoral artery: 24 cm/second. Mid superficial femoral artery: 37 cm/second. Distal superficial femoral artery: 43 cm/second. Popliteal artery: 15 cm/second. Distal posterior tibial artery: 18 cm/second. Dorsalis pedis artery: 34 cm/second. Left leg: VESSELS/ WAVEFORMS: Monophasic arterial inflow with a very blunted wave form. Minimal flow in the superficial femoral artery. There is reconstitution of monophasic flow in the mid to distal segment. There is flow in the dorsalis pedis and posterior tibial arteries, also monophasic. PEAK SYSTOLIC VELOCITIES: Common femoral artery: 10 cm/second. Proximal superficial femoral artery: Seven cm/second. Mid superficial femoral artery: 24 cm/second. Distal superficial femoral artery: 36 cm/second. Popliteal artery: 15 cm/second. Distal posterior tibial artery: 24 cm/second. Dorsalis pedis artery: 23 cm/second. IMPRESSION: 1. 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 2. Probable right mid superficial femoral arterial stenosis with collateral. 3. Probable left proximal superficial femoral artery stenosis, collateral not visible. 4. Diminutive vessels with monophasic flow consistent with systemic atherosclerosis. Dictated by: RUBENS EDMONDSON MD D: THERONKR;07/14/16753 <Electronically signed by RUBENS EDMONDSON MD in OV> 07/14/16753). REVIEW OF SYSTEMS The patient has had numbness. No swelling, weakness, suspected foreign body or skin laceration. He has no pain on weight bearing. PAST HISTORY ( PCP: [facility] PROBLEMS: Paresthesia. Chest Pain. Hypotension. Bursitis. Tetanus Status. Immunizations. Sprain. Prior Injury, Same Area. Hyperlipidemia. Hypertension. --20:46 Silvana Up R.N. ADDITIONAL SURGERIES: Cardiac stent. Knee Surgery. Shoulder Surgery. --20:46 Silvana Up R.N.). SOCIAL HISTORY Current every day smoker. ADDITIONAL NOTES The nursing notes have been reviewed. PHYSICAL EXAM Vital Signs: 07/14/2016 22:23 BP: 136/77. 07/14/2016 22:23 BP: 111/63. HR: 66. RR: 16. O2 saturation: 96%. Pain level now: 07/16. 07/14/2016 20:42 BP: 141/68. HR: 74. RR: 16. O2 saturation: 99%. Temp: 98.4 F. Pain level now: 07/16. Appearance: Alert. No acute distress. Respiratory: No respiratory distress. Abdomen: Soft and nontender. No mass present. (Barely palbable femoral pulses bilaterally). Back: No vertebral point tenderness or soft tissue tenderness. Extremities: (Both legs pink and warm. LLE no palpable pulses in the foot or popliteal fossa. Some decreased sensation in the LLE. SLR is positive at 50 degrees on the L). Neuro, Vascular and Tendons: Pulse deficit present. Capillary refill not prolonged. Sensory deficit. Neuro: No alteration in mental status. PROGRESS AND PROCEDURES Course of Care: 21:37 07/14/16. Kenneth Tariq - paged 21:44 07/14/16. Dr Martinez web operations manager/paged. 21:57 07/14/16. Dr Martinez - discussed current findings and yesterdays dopler studies. My assessment is that the patient has worsening claudication and worsening rest pain without immediate risk of limb loss. It is pink and warm. My request is that Mr. Martins be evaluated tomorrow by Dr Bush or Piter. Dr Martinez will communicate with Dr. Thompson to make that happen. The patient is instructed on plan as described below. Disposition: Discharged. Condition: stable. CLINICAL IMPRESSION PERIPHERAL VASCULAR DISEASE LLE REST PAIN AND CLAUDICATION - NOW WORSE. INSTRUCTIONS (EXPECT A CALL FROM DR Bush'S OFFICE IN THE MORNING WITH INSTRUCTIONS IF YOU DO NOT HEAR FROM THEN CALL IN THE EARLY AFTERNOON. YOU NEED A RE EVALUATION ON THE PONE OR IN PERSON TOMORROW TO SEE IF THE CURRENT VASCULAR PLAN NEEDS TO BE CHANGED. IMMEDIATE RECHECK FOR WORSE PAIN, COOLNESS, BLUENESS OF THE L LEG OR FOOT.). Understanding of the discharge instructions verbalized. (Electronically signed by Arturo Monroe MD 07/18/2016 13:14)
--- NOTE | 2016-07-18 13:15 | ED MAR SUMMARY ---
..... Medication Administration Record [facility] [address] [place] [place], [place] [id number] Patient: ARTURO MARTINS Visit ID: [id number] 61y, M Weight: 90.7 kg Height/Length: 71 in BMI: 27.9 ALLERGIES: None
--- NOTE | 2016-07-18 13:15 | ED DISCHARGE INSTRUCTIONS ---
Patient: MARTINSTY MEDLEY Rossana General Instructions [facility] VisitID: [id number] [address] [place] [address] 61y, M Registration Date/Time: 07/14/2016 PERIPHERAL VASCULAR DISEASE LLE REST PAIN AND CLAUDICATION - NOW WORSE. INSTRUCTIONS (EXPECT A CALL FROM DR Bush'S OFFICE IN THE MORNING WITH INSTRUCTIONS IF YOU DO NOT HEAR FROM THEN CALL IN THE EARLY AFTERNOON. YOU NEED A RE EVALUATION ON THE PONE OR IN PERSON TOMORROW TO SEE IF THE CURRENT VASCULAR PLAN NEEDS TO BE CHANGED. IMMEDIATE RECHECK FOR WORSE PAIN, COOLNESS, BLUENESS OF THE L LEG OR FOOT.). Understanding of the discharge instructions verbalized. (Electronically signed by Ty Monroe MD 07/18/2016 13:14)
--- NOTE | 2016-07-18 13:15 | ED DISCHARGE INSTRUCTIONS ---
Patient: MARTINSTY MEDLEY Rossana General Instructions [facility] VisitID: [id number] [address] [place] [address] 61y, M Registration Date/Time: 07/14/2016 PERIPHERAL VASCULAR DISEASE LLE REST PAIN AND CLAUDICATION - NOW WORSE. INSTRUCTIONS (EXPECT A CALL FROM DR Bush'S OFFICE IN THE MORNING WITH INSTRUCTIONS IF YOU DO NOT HEAR FROM THEN CALL IN THE EARLY AFTERNOON. YOU NEED A RE EVALUATION ON THE PONE OR IN PERSON TOMORROW TO SEE IF THE CURRENT VASCULAR PLAN NEEDS TO BE CHANGED. IMMEDIATE RECHECK FOR WORSE PAIN, COOLNESS, BLUENESS OF THE L LEG OR FOOT.). Understanding of the discharge instructions verbalized. (Electronically signed by Ty Monroe MD 07/18/2016 13:14)
--- NOTE | 2016-07-18 13:15 | ED MED RECONCILIATION SUMMARY ---
Patient: ARTURO MARTINS Medication Reconciliation Report [facility] VisitID: [id number] [place] [address] 61y, M Registration Date/Time: 07/14/2016 Weight: 90.7 kg Height/Length: 71 in. BMI: 27.9 ALLERGIES: None The patient's Home Medications are listed below: THE FOLLOWING MEDICATIONS NEED TO BE RECONCILED: AmLODIPine Besylate Oral (10 mg) 1 tablet, daily Aspirin Oral (81 mg) 1 tablet, daily Aspirin Oral Atorvastatin Calcium Oral (40 mg) 1 tablet, daily Atorvastatin Calcium Oral Clopidogrel Bisulfate Oral (75 mg) 1 tablet, daily Hydrochlorothiazide Oral (25 mg) 1 tablet, daily Hydrochlorothiazide Oral Lisinopril Oral (5 mg) 1 tablet, 2x a day Metoprolol Tartrate Oral (25 mg) 1 tablet, 2x daily Metoprolol Tartrate Oral Pantoprazole Sodium Oral (40 mg) 1 tablet, daily Pantoprazole Sodium Oral The source(s) of the original Home Medication information: Not obtained. The following Medications were given to the patient in the Emergency Department: None. The following Medications were prescribed to the patient: None.
--- NOTE | 2016-07-18 13:15 | ED MED RECONCILIATION SUMMARY ---
Patient: ARTURO MARTINS Medication Reconciliation Report [facility] VisitID: [id number] [place] [address] 61y, M Registration Date/Time: 07/14/2016 Weight: 90.7 kg Height/Length: 71 in. BMI: 27.9 ALLERGIES: None The patient's Home Medications are listed below: THE FOLLOWING MEDICATIONS NEED TO BE RECONCILED: AmLODIPine Besylate Oral (10 mg) 1 tablet, daily Aspirin Oral (81 mg) 1 tablet, daily Aspirin Oral Atorvastatin Calcium Oral (40 mg) 1 tablet, daily Atorvastatin Calcium Oral Clopidogrel Bisulfate Oral (75 mg) 1 tablet, daily Hydrochlorothiazide Oral (25 mg) 1 tablet, daily Hydrochlorothiazide Oral Lisinopril Oral (5 mg) 1 tablet, 2x a day Metoprolol Tartrate Oral (25 mg) 1 tablet, 2x daily Metoprolol Tartrate Oral Pantoprazole Sodium Oral (40 mg) 1 tablet, daily Pantoprazole Sodium Oral The source(s) of the original Home Medication information: Not obtained. The following Medications were given to the patient in the Emergency Department: None. The following Medications were prescribed to the patient: None.
--- NOTE | 2016-07-18 13:15 | ED MAR SUMMARY ---
..... Medication Administration Record [facility] [address] [place], [place] [id number] Patient: ARTURO MARTINS Visit ID: [id number] 61y, M Weight: 90.7 kg Height/Length: 71 in BMI: 27.9 ALLERGIES: None
== END ==
LOC: ED SRH 20:34
DX: I73.9 Peripheral vascular disease, unspecified (principal); M79.605 Pain in left leg; I10 Essential (primary) hypertension; E78.5 Hyperlipidemia, unspecified; F17.200 Nicotine dependence, unspecified, uncomplicated

== ENCOUNTER 2016-07-19 10:57 | Outpatient (CLI) | payer OTHER ==
--- NOTE | 2016-07-19 11:54 | DIAGNOSTIC IMAGING REPORT ---
PROCEDURE: XR LUMBAR SPINE 5 VIEWS INDICATION: L FOOT NUMBNESS TECHNIQUE: Five views. COMPARISON: None. FINDINGS: Osseous structures and disc spaces are normal other than a few scattered osteophytes. No evidence of an acute process or fracture. No evidence of spondylolysis or spondylolisthesis. IMPRESSION: 1. Negative lumbar spine.
== END 2016-07-19 23:00 ==
LOC: XR SRH 10:57
DX: M54.5 Low back pain (principal); R20.0 Anesthesia of skin